=== PATIENT | male | born 1990 | race Caucasian/White ===

== ENCOUNTER 2020-12-22 11:40 | Outpatient (REF) | payer OTHER, SELFPAY ==
[2020-12-22 14:27] LABS: Alanine Aminotransferase 19 U/L (0-40); Anion Gap 13 (12-20); Aspartate Amino Transferase 21 U/L (5-37); Blood Urea Nitrogen 11 mg/dL (9-16); Calcium 9.3 mg/dL (8.4-10.2); Carbon Dioxide 28 mmol/L (22-29); Chloride 102 mmol/L (96-108); Cholesterol 153 mg/dL; Estimated Glomerular Filt Rate > 60; Glucose Fasting 78 mg/dL (60-99); HDL Cholesterol 35 mg/dL; LDL Cholesterol Calculated 100 mg/dl; Potassium 3.9 mmol/L (3.3-5.1); Sodium 139 mmol/L (135-145); Triglycerides 91 mg/dL
== END 2020-12-22 11:41 | disposition home or self-care (01) ==
LOC: HO.HMGCLDS 11:40
PROVIDERS: PCP Internal Medicine; Visit Provider Internal Medicine
DX: Z00.00 Encounter for general adult medical examination without abnormal findings (principal); I10 Essential (primary) hypertension
CPT/HCPCS: 36415; 80048; 80061; 84450; 84460

== ENCOUNTER 2021-12-24 10:32 | Outpatient (REF) | payer OTHER, SELFPAY ==
[2021-12-24 11:49] LABS: MANUAL DIFF FLAG NO
[2021-12-24 11:55] LABS: Basophils Percent Auto 0.4 % (0-2); Eosinophils Absolute Auto 0.1 X10*3/uL (0.0-0.4); Eosinophils Percent Auto 2.8 % (0-4); Hematocrit 43.1 % (42.0-52.0); Imm Gran Abs Auto 0.03 X10*3/uL (0.00-0.03); Imm Gran Pct Auto 0.6 % (0.0-0.4); Lymphocytes Absolute Auto 1.3 X10*3/uL (1.2-4.9); Lymphocytes Percent Auto 27.3 % (20-40); Mean Corpuscular HGB Conc 32.5 g/dl (31.0-36.0); Mean Corpuscular Hemoglobin 29.2 pg (27.0-33.0); Mean Platelet Volume 10.8 fL (9.4-12.4); Monocytes Absolute Auto 0.5 X10*3/uL (0.1-1.2); Monocytes Percent Auto 10.5 % (2-11); Neutrophils Absolute Auto 2.7 x10*3/uL (2.0-8.3); Neutrophils Percent Auto 58.4 % (45-73); Platelet Count 176 X10*3/uL (160-400); Red Blood Count 4.79 X10*6/uL (4.60-5.80); Red Cell Distribution Width 12.7 % (11.0-16.0); White Blood Count 4.7 X10*3/uL (4.8-10.8)
[2021-12-24 12:21] LABS: Alanine Aminotransferase 28 U/L (0-40); Albumin Level 4.5 g/dL (3.5-5.0); Alkaline Phosphatase 47 U/L (39-117); Anion Gap 13 (12-20); Aspartate Amino Transferase 29 U/L (5-37); Bilirubin Total 0.9 mg/dL (0.0-1.0); Blood Urea Nitrogen 13 mg/dL (9-16); Calcium 9.4 mg/dL (8.4-10.2); Carbon Dioxide 26 mmol/L (22-29); Chloride 104 mmol/L (96-108); Cholesterol 139 mg/dL; Estimated Glomerular Filt Rate > 60; Glucose Fasting 82 mg/dL (60-99); HDL Cholesterol 38 mg/dL; LDL Cholesterol Calculated 92 mg/dl; Magnesium 2.1 mg/dL (1.6-2.6); Potassium 4.2 mmol/L (3.3-5.1); Sodium 139 mmol/L (135-145); Total Protein 7.2 g/dL (6.5-8.0); Triglycerides 47 mg/dL
[2021-12-24 12:29] LABS: TSH reflex Free T4 1.37 uIU/mL (0.32-4.0)
[2021-12-24 12:39] LABS: Vitamin B12 364 pg/mL (200-900)
[2021-12-24 14:46] LABS: CT PCR NOT DETECTED (Not Detect.); NG PCR NOT DETECTED (Not Detect.)
[2021-12-24 15:17] LABS: Vitamin D 25-OH Total 26.5 ng/mL (>30)
[2021-12-26 08:58] LABS: HBc Num1 0.07 S/CO (0.00-0.79); HBsAGNum1 0.18 S/CO (0.00-0.99); HIV AB/AG Nonreactive (Nonreactive); HIV Num 1 0.07 S/CO (0.00-0.99); Hepatitis B Core Antibody Nonreactive (Nonreactive); Hepatitis B Surface Antigen Negative (Negative); ~HepC Num1 0.13 S/CO (0.00-0.79); ~Hepatitis C Antibody Nonreactive (Nonreactive)
[2021-12-26 09:08] LABS: HBS Num1 90.36 mIU/mL (0-7.99); ~Hepatitis B Surface Antibody REACTIVE (Nonreactive)
[2021-12-29 14:41] LABS: Testosterone, Free 78.1 pg/mL (35.0-155.0); Testosterone, Total 587 ng/dL (250-1100)
== END 2021-12-24 10:33 | disposition home or self-care (01) ==
LOC: HO.HMGCLDS 10:32
PROVIDERS: PCP Internal Medicine; Visit Provider Internal Medicine
DX: Z00.01 Encounter for general adult medical examination with abnormal findings (principal); M79.10 Myalgia, unspecified site; Z83.49 Family history of other endocrine, nutritional and metabolic diseases; Z11.3 Encounter for screening for infections with a predominantly sexual mode of transmission
CPT/HCPCS: 80053; 80061; 82306; 82550; 82607; 82746; 83735; 84402; 84403; 84443; 85025; 86704; 86706; 86803; 87340; 87389; 87491; 87591

== ENCOUNTER 2022-12-29 11:55 | Outpatient (AMB) | payer OTHER, SELFPAY ==
--- NOTE | 2022-12-29 11:58 | MHC.PC.OV ---
Vital Signs 12/29/22 11:59 Height 5 ft 8 in Weight 209 lb BMI 31.8 BP 120/72 Blood Pressure Location Lt brachial Position Sitting Pulse 73 Pulse Source Pulse Oximeter Pulse Oximetry (%) 99 Oxygen Delivery Method Room Air Intake Visit Reasons: annual PE Intake Note: Pt is here today for his PE Allergies penicillin G Allergy (Intermediate, Verified 12/29/22 12:37) hives Medication List - Last Reconciled 12/29/22 by Erica Tony MD creatine monohydrate mg PO magnesium glycinate 200 mg PO DAILY Tobacco use date assessed: 12/29/22 Dental Screening Dental Screen Date: 12/29/22 Did you have a dental visit in the last 12 months?: Yes Did you have a dental problem in the last 6 months where you did not have access to dental care?: No Was dental information given to patient?: Patient has dentist HPI annual PE HPI Details 32-year-old male, presents today for physical exam. He has been taking creatine supplements to build muscle, has been lifting weights. He sees his therapist regularly for his anxiety disorder.. He states that he contracted a very pruritic rash, which appeared mainly on his forehead while clearing some brush a week ago, and applied [id number] topical steroid which afforded slow resolution of the rash. He would like a referral to see an aerial tram operator to be tested for other other things that he might need to avoid that he is allergic to. [facility] Medical History (Updated 12/29/22 @ 13:02 by Erica Tony MD) Hx of contact dermatitis Generalized anxiety disorder Obesity (BMI 30.0-34.9) Family history of thyroid disease in father ADHD, predominantly inattentive type Surgical History (Updated 12/20/20 @ 10:52 by Erica Tony MD) No pertinent past surgical history Family History (Updated 12/29/22 @ 13:01 by Erica Tony MD) Father Substance use disorder Laryngeal cancer, Onset Age: 58 Thyroid disease Mother Diverticulitis HTN (hypertension) Housing: House Patient Tobacco Use Status: Never used Tobacco e-Cigarette/Vaping Use: Never Used service: No Current occupational status: employed Cognitive needs: No Hearing needs: No Vision needs: No Questionnaire PHQ-9 Over the last 2 weeks, how often have you been bothered by any of the following problems? 1. Little interest or pleasure in doing things: not at all 2. Feeling down, depressed, or hopeless: not at all 3. Trouble falling or staying asleep, or sleeping too much: not at all 4. Feeling tired or having little energy: not at all 5. Poor appetite or overeating: not at all 6. Feeling bad about yourself - or that you are a failure or have let yourself or your family down: not at all 7. Trouble concentrating on things, such as reading the newspaper or watching television: not at all 8. Moving or speaking so slowly that other people could have noticed. Or the opposite - being so fidgety or restless that you have been moving around a lot more than usual: not at all 9. Thoughts that you would be better off or of hurting yourself in some way: not at all Total score: 0 Depression Screening Interpretation: Negative Depression Screening Done: Yes 74302 - PHQ-9 Billing: Yes Source: Developed by Drs. Thaddeus Briceño, Myriam Juarez, Meño Elliott and colleagues, with an educational joya from [employer]. Thrive Questionnaire Date Thrive assessed: 12/29/22 I am a: Patient What is your living situation today?: I have a steady place to live Within the past 12 months, did the food you bought not last and you didn't have the money to get more?: Never true Within the past 12 months, did you worry whether your food would run out before you got money to buy more?: Never true Do you have trouble paying for medicines?: No Do you have trouble getting transportation to medical appointments?: No Do you have trouble paying your heating and electricity bill?: No Do you have trouble taking care of your child, family member or friend?: No Do you have trouble with day-to-day activities such as bathing, preparing meals, shopping, managing finances, etc.?: No Are you currently unemployed and looking for a job?: No Are you interested in more education?: No AUDIT C Alcohol Use Questionnaire (AUDIT-C) 1. How often do you have a drink containing alcohol?: Monthly or less 2. How many drinks containing alcohol do you have on a typical day when you are drinking?: 1 or 2 3. How often do you have six or more drinks on one occasion?: Never Total Score: 1 JESUS-7 AMB Questionnaire JESUS-7 Date JESUS - 7 assessed: 12/29/22 Feeling nervous, anxious, or on edge: 2 = More than half the days Not being able to stop or control worryin = More than half the days Worrying too much about different things: 1 = Several days Trouble relaxin = Several days Being so restless that it is hard to sit still: 1 = Several days Becoming easily annoyed or irritable: 0 = Not at all Feeling afraid as if something awful might happen: 0 = Not at all Total JESUS-7 score (0-4 normal; 5-9 mild; 10-14 moderate; 15-21 severe): 7 Source: Developed by Drs. Thaddeus Briceño, Myriam Juarez, Meño Elliott and colleagues, with an educational joya from [employer]. JESUS-7 Assessment Billing JESUS-7 Assessment Tool: JESUS-7 Assessment 45481 Review of Systems Const Denies body aches, Denies fever(s), Denies headache(s) and Denies weakness Eyes Denies change in vision ENT Reports Normal hearing present, Denies dizziness, Denies headache(s), Denies nasal congestion, Denies nasal discharge and Denies sore throat Card Denies chest pain, Denies irregular heart rhythm, Denies lightheadedness and Denies dyspnea Resp Denies chest congestion, Denies cough, Denies dyspnea and Denies wheezing GI Denies abdominal pain, Denies change in bowel habits and Denies heartburn Denies change in libido, Denies difficulty urinating, Denies genital lesions, Denies genital pain, Denies dysuria, Denies penile discharge, Denies urinary frequency and Denies urinary urgency Musc Reports no additional complaints Skin/Breast Details: As per HPI Neuro Reports Normal hearing present, Denies dizziness, Denies headache(s), Denies Sensory deficit (Neuro) and Denies weakness Psych Reports no additional complaints and Denies change in libido Endo Denies change in libido, Denies polydipsia and Denies polyuria Irving/Lymph Reports no additional complaints Aller/Immun Denies seasonal rhinorrhea and Denies wheezing Physical exam (Primary Care) Vital Signs: Last Vital Signs Pulse 73 12/29/22 11:59 BP 120/72 12/29/22 11:59 Pulse Ox 99 12/29/22 11:59 Oxygen Delivery Method Room Air 12/29/22 11:59 BMI result Body Mass Index 31.8 BMI Assessment/Plan discussion: High BMI High, discussed plan: weight reduction, dietary and physical activity Tobacco/Smoking Status: Tobacco use Status Tobacco use date assessed 12/29/22 12/29/22 12:00 Patient Tobacco Use Status Never used Tobacco 12/29/22 12:00 e-Cigarette/Vaping Use Never Used 12/29/22 12:00 PHQ-9: PHQ-9 Score PHQ-9: Total score 0 12/29/22 13:13 Depression Screening Interpretation: Negative Thrive Assessment: Date of Thrive Assessment Date Thrive assessed 12/29/22 12/29/22 12:03 Const Other: Alert oriented x3, no acute cardiorespiratory distress ambulatory with normal gait General: cooperative, no acute distress and alert Nutritional Appearance: obese Orientation/consciousness: patient oriented x3 HENMT Head: Yes normal to inspection, Yes normocephalic and Yes atraumatic Ears: hearing grossly normal bilaterally, external ears normal, TM's normal bilaterally and EAC's normal General nose exam: Normal external nose present Face and sinus: Yes face symmetric Mouth: oropharynx normal and moist mucous membranes Eyes General: appearance normal, both eyes and all related structures Neck Neck: Yes full ROM and Yes no lymphadenopathy Thyroid: Thyroid normal Chest Chest palpation & inspection: normal inspection of the chest Resp Effort & Inspection: normal respiratory effort and able to speak in complete sentences Auscultation: clear to auscultation bilaterally Cardio Rate: regular rate Rhythm: regular rhythm Heart sounds: S1 normal heart sound present and S2 normal heart sound present GI Inspection: Yes normal to inspection Palpation (GI): Soft to palpation Auscultation: normal bowel sounds General: Yes no CVA tenderness Male General Exam: Yes normal external exam Back/Spine/Pelvis Back: no CVA tenderness and No back tenderness Skin General skin exam: no rashes or lesions noted Neuro General: patient oriented x3, gait normal, moves all extremities, no focal motor deficits and CN's II-XI intact bilaterally Cranial nerves: Yes Normal hearing present Cognition (Neuro): normal cognition Motor exam (neuro): 5/5 motor strength present throughout Sensory Exam: No Sensory deficit (Neuro) Extrem General: Yes full ROM, Yes no pedal edema and Yes normal gait Psych Appearance: grossly normal and well kempt Mental Status: mental status grossly normal Speech and movement: Normal speech and movement present Affect: normal affect Attitude: cooperative Thought process: Normal thought process present Office Procedures Flu Questionnaire Does the patient have a severe egg allergy?: No Does the patient have severe life threatening allergies?: No Does the patient have a fever or illness today?: No Has the patient ever had Guillain-[place] Syndrome?: No Has the patient ever had any past reaction to a flu shot?: No Immunizations flu vacc [id number] 6mos up(PF) 60 mcg(15 mcgx4)/0.5 mL IM syringe Performing Provider: Erica Tony MD Performing Location: [facility] Administered by: Elena Swan CMA on 12/29/22 13:13 Dose Route Admin Location Dispensed Lot Number Expiration Date ND Power Mule Operator 0.5 mL IM Right Deltoid 0.5 mL [id number] 08/12/23 28933-410-70 [employer] VIS Given Date VIS Provided VIS Publication Date 12/29/22 Single Vaccine 20 Eligibility Eligibility Date Funding Source Not VFC Eligible 12/29/22 Private Boostrix Tdap 2.5 Lf unit-8 mcg-5 Lf/0.5 mL intramuscular syringe Performing Provider: Erica Tony MD Performing Location: [facility] Administered by: Elena Swan CMA on 12/29/22 13:14 Dose Route Admin Location Dispensed Lot Number Expiration Date NDC Power Mule Operator 0.5 mL IM Left Deltoid 0.5 mL [id number] 02/22/25 [id number] [employer] VIS Given Date VIS Provided VIS Publication Date 12/29/22 Single Vaccine 20 Eligibility Eligibility Date Funding Source Not VFC Eligible 12/29/22 Private Assessment and Plan Assessment & Plan (1) Annual visit for general adult medical examination with abnormal findings: Code(s): Z00.01 - Encounter for general adult medical examination with abnormal findings Plan: Will check appropriate labs. Recommended dental visit every 6 months and regular eye exams, at least every 2 years. Continue with doing regular exercise, but avoid taking a lot of supplements. Flu shot given today. Reminded to get his COVID booster (2) Hx of contact dermatitis: Comment: on forehead while clearing bushes Code(s): Z87.2 - Personal history of diseases of the skin and subcutaneous tissue Plan: Referral to credit specialist for further evaluation, per patient request, would like to be checked for other allergens (3) Family history of thyroid disease in father: Code(s): Z83.49 - Family history of other endocrine, nutritional and metabolic diseases Plan: Ordered a TSH with reflex free T4 (4) Obesity (BMI 30.0-34.9): Code(s): E66.9 - Obesity, unspecified Plan: Discussed need to increase activity and weight reduction. Recommended focusing on improving your health instead of dieting. : Eat Mediterranean diet, limit foods high in fat, sugar, and calories, eat slowly, pay attention to portion sizes, plan your meals ahead of time, start regular physical activity 150 minutes of moderate intensity exercise or 90 minutes/week of vigorous exercise and increase water intake. (5) Generalized anxiety disorder: Comment: sees a therapist every 2 weeks Code(s): F41.1 - Generalized anxiety disorder Plan: Continue with regular psychotherapy sessions. (6) Needs flu shot: Code(s): Z23 - Encounter for immunization Plan: Flu vaccine given today (7) Need for Tdap vaccination: Code(s): Z23 - Encounter for immunization Plan: Patient also was advised that he needed Tdap vaccination, given today Orders: Orders Alanine Aminotransferase 12/30/22 E66.9 - Obesity, unspecified, Z83.49 - Family history of other endocrine, nutritional and metabolic diseases, Z00.01 - Encounter for general adult medical examination with abnormal findings, F41.1 - Generalized anxiety disorder Aspartate Amino Transferase 12/30/22 E66.9 - Obesity, unspecified, Z83.49 - Family history of other endocrine, nutritional and metabolic diseases, Z00.01 - Encounter for general adult medical examination with abnormal findings, F41.1 - Generalized anxiety disorder TDaP Immunization 12/29/22 Z23 - Encounter for immunization TSH reflex Free T4 12/30/22 E66.9 - Obesity, unspecified, Z83.49 - Family history of other endocrine, nutritional and metabolic diseases, Z00.01 - Encounter for general adult medical examination with abnormal findings, F41.1 - Generalized anxiety disorder Vitamin B12 and Folate 11/18/23 E66.9 - Obesity, unspecified, Z83.49 - Family history of other endocrine, nutritional and metabolic diseases, Z00.01 - Encounter for general adult medical examination with abnormal findings, F41.1 - Generalized anxiety disorder Vitamin D 25-OH Total 12/30/22 E66.9 - Obesity, unspecified, Z83.49 - Family history of other endocrine, nutritional and metabolic diseases, Z00.01 - Encounter for general adult medical examination with abnormal findings, F41.1 - Generalized anxiety disorder Lipid Panel 12/30/22 E66.9 - Obesity, unspecified, Z83.49 - Family history of other endocrine, nutritional and metabolic diseases, Z00.01 - Encounter for general adult medical examination with abnormal findings, F41.1 - Generalized anxiety disorder UA CC w/rflx Micro + Cult 12/30/22 E66.9 - Obesity, unspecified, Z83.49 - Family history of other endocrine, nutritional and metabolic diseases, Z00.01 - Encounter for general adult medical examination with abnormal findings, F41.1 - Generalized anxiety disorder Basic Metabolic Panel Fasting 12/30/22 E66.9 - Obesity, unspecified, Z83.49 - Family history of other endocrine, nutritional and metabolic diseases, Z00.01 - Encounter for general adult medical examination with abnormal findings, F41.1 - Generalized anxiety disorder Influenza [id number] Immunization 12/29/22 Z23 - Encounter for immunization Referrals Allergy & Immunology Referral Z87.2 - Personal history of diseases of the skin and subcutaneous tissue Coding Level of Care Code Est Pt Prev Care 18-39y(50240) Diagnoses Annual visit for general adult medical examination with abnormal findings Z00.01 Hx of contact dermatitis Z87.2 Family history of thyroid disease in father Z83.49 Obesity (BMI 30.0-34.9) E66.9 Generalized anxiety disorder F41.1 Needs flu shot Z23 Need for Tdap vaccination Z23 Additional Codes JESUS-7 Assessment Billing - JESUS-7 Assessment Tool: JESUS-7 Assessment 39115 ([id number])
[2022-12-29 11:59] VITALS: BP 120/72; PULSE 73; O2SAT 99; BMI 31.8
== END 2022-12-29 13:14 | disposition home or self-care (01) ==
PROVIDERS: Visit Provider Internal Medicine
DX: Z23 Encounter for immunization (principal)
CPT/HCPCS: 90471; 90472; 90686; 90715; 99395

== ENCOUNTER 2022-12-30 10:19 | Outpatient (REF) | payer OTHER, SELFPAY ==
[2022-12-30 11:35] LABS: Appearance Urine Clear; Color Urine Yellow; Glucose Urine UA Negative (Negative); Leukocyte Esterase Urine Negative (Negative); Nitrite Urine Negative (Negative); Specific Gravity - Urine 1.015 (1.005-1.025); Urine Blood Negative (Negative); Urine Ketones Negative (Negative); Urine Protein Negative (Neg-Trace)
[2022-12-30 11:46] LABS: Alanine Aminotransferase 19 U/L (0-40); Anion Gap 12 (12-20); Aspartate Amino Transferase 21 U/L (5-37); Blood Urea Nitrogen 11 mg/dL (9-16); Calcium 9.5 mg/dL (8.4-10.2); Carbon Dioxide 28 mmol/L (22-29); Chloride 103 mmol/L (96-108); Cholesterol 151 mg/dL (<200); Estimated Glomerular Filt Rate > 60; Glucose Fasting 73 mg/dL (60-99); HDL Cholesterol 41 mg/dL (>40); LDL Cholesterol Calculated 97 mg/dL (<100); Sodium 139 mmol/L (135-145); Triglycerides 67 mg/dL (<150)
[2022-12-30 12:03] LABS: TSH reflex Free T4 1.41 uIU/mL (0.32-4.0); Vitamin D 25-OH Total 29.4 ng/mL (>30)
[2022-12-30 12:10] LABS: Folate 15.7 ng/mL (> or = 4.0); Vitamin B12 598 pg/mL (200-900)
== END 2022-12-30 10:20 | disposition home or self-care (01) ==
LOC: HO.HMGCLDS 10:19
PROVIDERS: PCP Internal Medicine; Visit Provider Internal Medicine
DX: Z00.01 Encounter for general adult medical examination with abnormal findings (principal); E66.9 Obesity, unspecified; F41.1 Generalized anxiety disorder; Z83.49 Family history of other endocrine, nutritional and metabolic diseases
CPT/HCPCS: 36415; 80048; 80061; 81003; 82306; 82607; 82746; 84443; 84450; 84460

== ENCOUNTER 2023-07-13 12:52 | Outpatient (AMB) | payer OTHER, SELFPAY ==
[2023-07-13 13:03] VITALS: BP 106/64; PULSE 101; TEMP 36.5; O2SAT 98; BMI 29.6
--- NOTE | 2023-07-13 13:03 | MHC.OFFWIV ---
Intake Vital Signs 07/13/23 13:03 Height 5 ft 8 in Weight 195 lb BMI 29.6 BP 106/64 Blood Pressure Location Lt brachial Position Sitting Pulse 101 H Pulse Source Pulse Oximeter Temp 97.7 F Temp Source Temporal Artery Scan Pulse Oximetry (%) 98 Intake Visit Reasons: EST/ back pain ongoing (lobby) Intake Note: pt is here today for back pain ongoing started 2019 Patient Tobacco Use Status: Never used Tobacco Allergies penicillin G Allergy (Intermediate, Verified 07/13/23 13:29) hives Do you need a note to return to daycare/school/sports/work: No HPI HPI Comments History of Present Illness Details He presents to office with back pain 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 He said during covid he was laid off and deconditioned Back pain intermittent with with yard activity sincee 2019 Has not been seen for this issue by provider yet Tried going to PT, gym, stretching, new matress etc and feels like back pain issue lingers and still comes back He wakes up tight lower to mid back to above mid tailbone He is looking for a PT referral to area closer to him He said he has also never had imaging done Denies neurological symptoms such as tingling, weakness, sharp shooting pain or pain into legs No abdominal pain No pain scalr given and pain is intermittent PFSH Medical History (Updated 07/13/23 @ 14:05 by Samantha Pan PA-C) Hx of contact dermatitis Generalized anxiety disorder Obesity (BMI 30.0-34.9) Family history of thyroid disease in father ADHD, predominantly inattentive type Surgical History (Updated 12/20/20 @ 10:52 by Erica Tony MD) No pertinent past surgical history Family History (Updated 12/29/22 @ 13:01 by Erica Tony MD) Father Substance use disorder Laryngeal cancer, Onset Age: 58 Thyroid disease Mother Diverticulitis HTN (hypertension) Social History Housing: House Patient Tobacco Use Status: Never used Tobacco e-Cigarette/Vaping Use: Never Used service: No Current occupational status: employed Cognitive needs: No Hearing needs: No Vision needs: No Review of Systems Card Denies chest pain and Denies dyspnea Resp Denies cough and Denies dyspnea GI Denies abdominal pain Musc Reports back pain, Denies numbness and Denies tingling Neuro Denies numbness, Denies tingling and Denies paresthesias Physical Exam Vital Signs: Last Vital Signs Temp 97.7 F 07/13/23 13:03 Pulse 101 H 07/13/23 13:03 BP 106/64 07/13/23 13:03 Pulse Ox 98 07/13/23 13:03 BMI result Body Mass Index 29.6 General: Non-toxic, NAD. Speaking full sentences. Skin: Warm dry throughout Respiratory: CTA bilaterally. No wheezes, rales or rhonchi Cardiac: RRR. No murmur MSK: No midline tenderness to c, t or l spine. Negative bilateral SLR. 5/5 strength flexion/extension at knees bilarerally. 5/5 dorsal and plantar flexion great toe bilaterally. Gait stable. Minimal point tenderness illicited to lumbar paravertebral region with pt palpation. None illicited with mine. Full ROM extremities. Neurology: A/O. No aphasia or facial droop. Gait without abnormality Psych: Good mood and affect Assessment & Plan Assessment & Plan (1) Back pain: Code(s): M54.9 - Dorsalgia, unspecified Qualifiers: Back pain location: low back pain Chronicity: acute Back pain laterality: bilateral Sciatica presence: without sciatica Qualified Code(s): M54.50 - Low back pain, unspecified Plan: Patient seen and evaluated. Will offer xray for pt has ongoing issue without imaging PT referral given Given advice to try dry needling at PT if appropriate Patient gave verbal understanding and had no additional questions or concerns at time of discharge All questions answered Orders: Orders PT Evaluation and Treatment Today M54.9 - Dorsalgia, unspecified XR lumbar spine 2-3V Today M54.9 - Dorsalgia, unspecified Coding Level of Care Code Est Pt Level 3 (79727) Diagnoses Acute bilateral low back pain without sciatica M54.50 Back pain location: low back pain Chronicity: acute Back pain laterality: bilateral Sciatica presence: without sciatica
== END 2023-07-13 14:08 | disposition home or self-care (01) ==
PROVIDERS: PCP Internal Medicine; Visit Provider Physician Assistant
DX: M54.50 Low back pain, unspecified (principal)
CPT/HCPCS: 99213

== ENCOUNTER 2023-07-13 13:55 | Outpatient (REF) | payer OTHER, SELFPAY ==
--- NOTE | ~2023-07-13 | XR_ITS ---
EXAMINATION: XR LUMBOSACRAL SPINE CLINICAL INFORMATION: Dorsalgia. COMPARISON: None available. TECHNIQUE: Three views of the lumbosacral spine. FINDINGS: There are 5 nonrib-bearing lumbar vertebra. The bony texture and alignment is satisfactory. Disc spaces are maintained. Pedicles intact. Sacroiliac joints unremarkable. XR/XR lumbar spine 2-3V IMPRESSION: No significant bony lumbar spine abnormality appreciated.
== END 2023-07-13 13:56 | disposition home or self-care (01) ==
LOC: HO.HMGCX 13:55
PROVIDERS: PCP Internal Medicine; Visit Provider Physician Assistant
DX: M54.9 Dorsalgia, unspecified (principal)
CPT/HCPCS: 72100

== ENCOUNTER 2024-01-23 13:32 | Outpatient (AMB) | payer BC, SELFPAY ==
[2024-01-23 13:35] VITALS: BP 104/60; PULSE 73; O2SAT 97; BMI 31.9
--- NOTE | 2024-01-23 13:35 | A.OFFPC_ITS ---
Vital Signs 01/23/24 13:35 Height 5 ft 8 in Weight 210 lb BMI 31.9 BP 104/60 Blood Pressure Location Lt brachial Position Sitting Pulse 73 Pulse Source Pulse Oximeter Pulse Oximetry (%) 97 Oxygen Delivery Method Room Air Intake Visit Reasons: PE Intake Note: Pt is here today for his PE Allergies penicillin G Allergy (Intermediate, Verified 01/23/24 14:01) hives Medication List - Last Reconciled 01/23/24 by Erica Tony MD No Known Home Meds Tobacco use date assessed: 01/23/24 Dental Screening Dental Screen Date: 01/23/24 Did you have a dental visit in the last 12 months?: Yes Did you have a dental problem in the last 6 months where you did not have access to dental care?: Yes Was dental information given to patient?: Patient has dentist [facility] Medical History (Updated 01/23/24 @ 14:29 by Erica Tony MD) Chronic low back pain Hx of attention deficit hyperactivity disorder Daytime sleepiness Fatigue Hx of contact dermatitis Generalized anxiety disorder Obesity (BMI 30.0-34.9) Surgical History No pertinent past surgical history Family History Father Substance use disorder Laryngeal cancer, Onset Age: 58 Thyroid disease Mother Diverticulitis HTN (hypertension) Social History Housing: House Patient Tobacco Use Status: Former Tobacco user e-Cigarette/Vaping Use: Never Used service: No Current occupational status: employed Cognitive needs: No Hearing needs: No Vision needs: No Questionnaire PHQ-9 Over the last 2 weeks, how often have you been bothered by any of the following problems? 1. Little interest or pleasure in doing things: not at all 2. Feeling down, depressed, or hopeless: not at all 3. Trouble falling or staying asleep, or sleeping too much: not at all 4. Feeling tired or having little energy: several days 5. Poor appetite or overeating: not at all 6. Feeling bad about yourself - or that you are a failure or have let yourself or your family down: not at all 7. Trouble concentrating on things, such as reading the newspaper or watching television: not at all 8. Moving or speaking so slowly that other people could have noticed. Or the opposite - being so fidgety or restless that you have been moving around a lot more than usual: not at all 9. Thoughts that you would be better off or of hurting yourself in some way: not at all Total score: 1 Depression Screening Interpretation: Negative Depression Screening Done: Yes 95427 - PHQ-9 Billing: Yes Source: Developed by Drs. Thaddeus Briceño, Myriam Juarez, Meño Elliott and colleagues, with an educational joya from [employer]. Thrive Questionnaire Date Thrive assessed: 01/23/24 I am a: Patient What is your living situation today?: I have a steady place to live Within the past 12 months, did the food you bought not last and you didn't have the money to get more?: Never true Within the past 12 months, did you worry whether your food would run out before you got money to buy more?: Never true Do you have trouble paying for medicines?: No Do you have trouble getting transportation to medical appointments?: No Do you have trouble paying your heating and electricity bill?: No Do you have trouble taking care of your child, family member or friend?: No Do you have trouble with day-to-day activities such as bathing, preparing meals, shopping, managing finances, etc.?: No Are you currently unemployed and looking for a job?: No Are you interested in more education?: No Please select the resources that you would like help with: None Currently or been in a relationship where the following occur: No concerns reported THRIVE Score: 0 AUDIT C Alcohol Use Questionnaire (AUDIT-C) 1. How often do you have a drink containing alcohol?: Monthly or less 2. How many drinks containing alcohol do you have on a typical day when you are drinking?: 1 or 2 3. How often do you have six or more drinks on one occasion?: Never Total Score: 1 JESUS-7 AMB Questionnaire JESUS-7 Date JESUS - 7 assessed: 01/23/24 Feeling nervous, anxious, or on edge: 0 = Not at all Not being able to stop or control worryin = Not at all Worrying too much about different things: 0 = Not at all Trouble relaxin = Not at all Being so restless that it is hard to sit still: 0 = Not at all Becoming easily annoyed or irritable: 0 = Not at all Feeling afraid as if something awful might happen: 0 = Not at all Total JESUS-7 score (0-4 normal; 5-9 mild; 10-14 moderate; 15-21 severe): 0 Source: Developed by Drs. Thaddeus Briceño, Myriam Juarez, Meño Elliott and colleagues, with an educational joya from [employer]. JESUS-7 Assessment Billing JESUS-7 Assessment Tool: JESUS-7 Assessment 39300 Physical exam (Primary Care) Vital Signs: Last Vital Signs Pulse 73 01/23/24 13:35 BP 104/60 01/23/24 13:35 Pulse Ox 97 01/23/24 13:35 Oxygen Delivery Method Room Air 01/23/24 13:35 BMI result Body Mass Index 31.9 Tobacco/Smoking Status: Tobacco use Status Tobacco use date assessed 01/23/24 01/23/24 13:36 Patient Tobacco Use Status Former Tobacco user 01/23/24 13:36 e-Cigarette/Vaping Use Never Used 01/23/24 13:36 PHQ-9: PHQ-9 Score PHQ-9: Total score 1 01/23/24 14:30 Depression Screening Interpretation: Negative Thrive Assessment: Date of Thrive Assessment Date Thrive assessed 01/23/24 01/23/24 13:36 Currently or been in a relationship where the following occur: No concerns reported Office Procedures Flu Questionnaire Does the patient have a severe egg allergy?: No Does the patient have severe life threatening allergies?: No Does the patient have a fever or illness today?: No Has the patient ever had Guillain-Rochester Syndrome?: No Has the patient ever had any past reaction to a flu shot?: No Immunizations Fluarix Triv 0798-4005 (PF) 45 mcg (15 mcg x 3)/0.5 mL IM syringe Performing Provider: Erica Tony MD Performing Location: [facility] Administered by: Elma Burr CMA on 01/23/24 14:30 Dose Route Admin Location Dispensed Lot Number Expiration Date [facility] Media Sales Executive 0.5 mL IM Left Deltoid 0.5 mL [id number] 08/11/24 22088-136-66 [employer] VIS Given Date VIS Provided VIS Publication Date 01/23/24 Single Vaccine 20 Eligibility Eligibility Date Funding Source Not [facility] Eligible 01/23/24 Private Coding Diagnoses Malaise R53.81 Fatigue R53.83 Daytime sleepiness R40.0 Obesity (BMI 30.0-34.9) E66.9 Advanced directives, counseling/discussion Z71.89 Annual visit for general adult medical examination with abnormal findings Z00.01 Additional Codes JESUS-7 Assessment Billing - JESUS-7 Assessment Tool: JESUS-7 Assessment 56726 ([id number]) PHQ-9 - 44002 - PHQ-9 Billing: Yes ([id number]) Assessment & Plan Assessment & Plan (1) Malaise: Code(s): R53.81 - Other malaise Category: Medical (2) Fatigue: Code(s): R53.83 - Other fatigue Category: Medical (3) Daytime sleepiness: Code(s): R40.0 - Somnolence Category: Medical (4) Obesity (BMI 30.0-34.9): Code(s): E66.9 - Obesity, unspecified Category: Medical (5) Advanced directives, counseling/discussion: Code(s): Z71.89 - Other specified counseling (6) Annual visit for general adult medical examination with abnormal findings: Code(s): Z00.01 - Encounter for general adult medical examination with abnormal findings Orders: Orders Vitamin D 25-OH Total Today R53.81 - Other malaise, R53.83 - Other fatigue Lipid Panel Today R53.81 - Other malaise, R53.83 - Other fatigue Comprehensive [place]. Panel Fast Today R53.81 - Other malaise, R53.83 - Other fatigue Creatine Kinase Total Today R53.81 - Other malaise, R53.83 - Other fatigue Complete Blood Count Auto Diff Today R53.81 - Other malaise, R53.83 - Other fatigue TSH reflex Free T4 Today R53.81 - Other malaise, R53.83 - Other fatigue Influenza [id number] Immunization Today Z23 - Encounter for immunization Referrals Sleep Medicine Referral R40.0 - Somnolence, R53.81 - Other malaise, R53.83 - Other fatigue
--- OUTSIDE RECORDS SUMMARY | 2024-01-24 02:29 | XMS_ITS | Data Portability ---
Author Organization [facility], [address] Address [address] [place] [address] Care Team Providers Care Felt Finisher Name Role Phone [facility] Primary Care Provider Assessment No assessment recorded. Plan of Treatment Reminders Order Date Submit Date Provider Last Modified By Organization Details Last Modified Time Details Appointments None recorded. Lab None recorded. Referral None recorded. Procedures None recorded. Surgeries None recorded. Imaging None recorded. Medication Orders Medrol (Derrick) 4 mg tablets in a dose pack 2022 023 [facility] #[id number], [address] [place], [address], 3 10:19:23 cetirizine 10 mg tablet 2022 023 [facility][id number], [address] [place], [address], 3 10:19:18 Patient TargetsNo targets recorded. Patient Instructions Encounter Date Encounter Id Patient Instructions Last Modified By Organization Details Last Modified Time 10/24/2022 [id number] Based on your ex am and presentation, you are being diagnosed with allergic dermatitis. You were prescribed Prednisone - Here is some general Information regarding this medication. 1. Make sure you take with Food 2. Do not take right before bedtime -this should be taken during the day because it may make you a little more wired. May keep you from sleeping. 3. Prednisone will increase glucose -so if you are a diabetic then you will need to monitor your glucose closely. Please d/c if glucose goes above 300. 4. Do not take this medication with Ibuprofen The following is my recommendations to help you with your condition: 1. Take Antihistamine - like Claritin, Onelia, or Benadryl 2. Hot showers will make you more itchy. 3. No creams or lotions 4. Cool Compresses 5. Try not to scratch or itch since this can lead to infection. I would call and schedule an appointment with a casing in line setter if the medications I wrote you do not help with your condition. You should be seen more urgently if you develop any of the followin. Worsening Redness 2. Purulent Discharge from the skin 3. Fever > 101.0 4. Joint Pain 5. Swelling [id number] Not available 10/24/2022 10:19:15 Reason for Referral None Reported. Problems No Known Problems Medical Equipment None Reported. Allergies Allergen ID Allergen Name Allergen Category Reaction Reaction Severity Criticality Documentation Date Start Date Code Code System Note Provider Name and Address Organization Details Recorded Time 634061 Medicinal product containin g penicilli n and acting as antibacte rial agent (product) medicatio n Not available Not available Not available 10/24/2022 99339 05 SNOMED D[facility]IUS Mane [facility] 3 10:00:37 Medications Name Sig Start Date Stop Date Status Note LastModified by Organization Details LastModified Time cetirizine 10 mg tablet Take 1 tablet every day by oral route for 10 days. 023 active Not Available Not Available Not Avai lable Medrol (Derrick) 4 mg tablets in a dose pack Take 1 dose pk by oral route. 023 active Not Available Not Available Not Avai lable Vitals Date Recorded Body height Body mass index (BMI) Body weight Respiratory rate Oxygen saturation Oxygen saturation in Arterial blood by Pulse oximetry Heart rate Body temperature Systolic blood pressure Diastolic blood pressure Provider Name and Address Organization Details Last Updated DateTime 3 172.72 cm 30.4 kg/m2 60022.4 7 g 18 /min 100 % 100 % 73 /min 98.1 [degF] 140 mm[Hg] 98 mm[Hg] FLAKITO Arzola [facility] 3 10:02:34 Social History Question Answer Notes LastModified by Organizat ion Details LastModified Time Tobacco Smoking Status Never Smoker [facility] 10/24/2022 10:01:32 What Is Your Level Of Alcohol Consumption? Occasional Information not available 10/24/2022 Which Illicit Or Recreational Drugs Have You Used? Marijuana Occasional Information not available 10/24/2022 Do You Use Any Illicit Or Recreational Drugs? Yes Information not available 10/24/2022 Do You Or Have You Ever Used Any Other Forms Of Tobacco Or Nicotine? No Information not available 10/24/2022 Sex: Unknown Functional Status None recorded. Mental Status None recorded. Family History Relationship Description Onset Age of this Age Resolved Age Notes LastModified by Organization Details LastModified Time Father Malignant neoplastic disease Not available 01/2023 10:01:00 Mother Diverticulit is Not available 01/2023 10:01:12 Medical History No medical history recorded. Immunizations Vaccine Type Date Status Note Provider Nam e and Address Organization Details Recorded Time Influenza, MDCK, quadrivalent, PF 03/12/2017 completed FLAKITO PUCKETT null, [place] - [facility] 10/24/2022 10:00:29 COVID-19 vaccine, vector-nr, rS-Ad26, PF, 0.5 mL 05/13/2020 completed FLAKITO PUCKETT null, [place] - [facility] 10/24/2022 10:00:29 Influenza, split virus, quadrivalent, PF 12/20/2020 completed FLAKITO PUCKETT null, [place] - [facility] 10/24/2022 10:00:29 Influenza, split virus, quadrivalent, PF 12/23/2021 completed FLAKITO PUCKETT null, [place] - [facility] 10/24/2022 10:00:29 Past Encounters Encounter ID Performer Location Encounter Start Date Encounter Closed Date Diagnosis/Indication Diagnosis SNOMED-CT Code Diagnosis ICD10 Code [id number] [address] [facility] [address] [place] [address] 07/07/2018 13:36:37 07/07/2018 14:23:43 [id number] DARIUS LANGSTON [address] [place] [address] 10/24/2022 09:26:45 10/24/2022 10:22:45 Localized eruption of skin 090946239 R21 Health Concerns Section Related Observation LastModified by Organization Melissa camacho LastModified Time None Recorded Concern Status LastModified by Organization Details LastModified Time None Recorded Advance Directives Directive None Recorded Payers Encounter Date Sequence Insurance Name Policy Number Policy Reeder Covered Member ID Reeder Member ID Guarantor Name 10/24/2022 1 [facility] [id number] 1 Bruce Krueger [id number] Bruce Evans Notes Date Note Type Note Provider Name and Address Organization Details Recorded Time 10/24/2022 text/html EdemaReported bypatient.Notes:32 y.o male pt presents with local swelling with mild erythematous pruritc rash that started along forehead that started today. PT was wearing a cap. He pulled it off and noticed a rash and swelling. He used some local hydrocortisone which helped. He denies pain or taking new meds DARIUS LANGSTON [facility] [place], [address], [place] - [facility] 10/25/2022 13:58:54
== END 2024-01-23 14:45 | disposition home or self-care (01) ==
PROVIDERS: PCP Internal Medicine; Visit Provider Internal Medicine
DX: Z23 Encounter for immunization (principal)

== ENCOUNTER → 2024-01-23 13:32 | Outpatient (BNVA) | payer OTHER, SELFPAY | PROVIDERS: PCP Internal Medicine; Visit Provider Internal Medicine | DX: Z00.01 Encounter for general adult medical examination with abnormal findings (principal); Z23 Encounter for immunization; R53.81 Other malaise; R53.83 Other fatigue; R40.0 Somnolence; E66.9 Obesity, unspecified; Z68.31 Body mass index [BMI] 31.0-31.9, adult; Z71.89 Other specified counseling | CPT/HCPCS: 90471; 90656; 96127 ==

== ENCOUNTER 2024-02-04 13:21 | Outpatient (REF) | payer BC, SELFPAY ==
[2024-02-04 16:12] LABS: MANUAL DIFF FLAG NO
[2024-02-04 16:21] LABS: Basophils Percent Auto 0.5 % (0-2); Eosinophils Absolute Auto 0.1 X10*3/uL (0.0-0.4); Eosinophils Percent Auto 2.2 % (0-4); Hematocrit 42.7 % (42.0-52.0); Hemoglobin 14.2 g/dl (14.0-18.0); Imm Gran Abs Auto 0.06 X10*3/uL (0.00-0.03); Imm Gran Pct Auto 1.1 % (0.0-0.4); Lymphocytes Absolute Auto 1.5 X10*3/uL (1.2-4.9); Lymphocytes Percent Auto 26.8 % (20-40); Mean Corpuscular HGB Conc 33.3 g/dl (31.0-36.0); Mean Corpuscular Hemoglobin 29.8 pg (27.0-33.0); Mean Corpuscular Volume 89.7 fL (80.0-98.0); Mean Platelet Volume 10.7 fL (9.4-12.4); Monocytes Absolute Auto 0.5 X10*3/uL (0.1-1.2); Monocytes Percent Auto 9.7 % (2-11); Neutrophils Absolute Auto 3.3 x10*3/uL (2.0-8.3); Neutrophils Percent Auto 59.7 % (45-73); Platelet Count 187 X10*3/uL (160-400); Red Blood Count 4.76 X10*6/uL (4.60-5.80); Red Cell Distribution Width 13.1 % (11.0-16.0); White Blood Count 5.6 X10*3/uL (4.8-10.8)
[2024-02-04 19:33] LABS: Albumin Level 4.6 g/dL (3.5-5.0); Anion Gap 12 (12-20); Aspartate Amino Transferase 28 U/L (5-37); Bilirubin Total 0.7 mg/dL (0.0-1.0); Blood Urea Nitrogen 12 mg/dL (9-16); Calcium 9.2 mg/dL (8.4-10.2); Carbon Dioxide 28 mmol/L (22-29); Chloride 104 mmol/L (96-108); Cholesterol 164 mg/dL (<200); Estimated Glomerular Filt Rate > 60; Glucose Fasting 84 mg/dL (60-99); HDL Cholesterol 43 mg/dL (>40); LDL Cholesterol Calculated 109 mg/dL (<100); Potassium 4.5 mmol/L (3.3-5.1); Sodium 139 mmol/L (135-145); Total Protein 7.3 g/dL (6.5-8.0); Triglycerides 64 mg/dL (<150)
[2024-02-04 20:18] LABS: Alanine Aminotransferase 34 U/L (0-40); Alkaline Phosphatase 46 U/L (39-117)
[2024-02-04 23:59] LABS: TSH reflex Free T4 2.18 uIU/mL (0.32-4.0); Vitamin D 25-OH Total 29.8 ng/mL (>30)
== END 2024-02-04 13:22 | disposition home or self-care (01) ==
LOC: HO.HMGCLDS 13:21
PROVIDERS: PCP Internal Medicine; Visit Provider Internal Medicine
DX: R53.81 Other malaise (principal); R53.83 Other fatigue
CPT/HCPCS: 36415; 80053; 80061; 82306; 82550; 84443; 85025

== ENCOUNTER 2024-03-04 11:03 | Outpatient (AMB) | payer BC, SELFPAY ==
--- NOTE | 2024-03-04 11:07 | A.OFFVIS_ITS ---
Vital Signs 03/04/24 11:11 Height 5 ft 8 in Weight 207 lb 8 oz BMI 31.5 BP 122/82 Blood Pressure Location Lt brachial Position Sitting Pulse 83 Pulse Source Pulse Oximeter Pulse Oximetry (%) 98 Oxygen Delivery Method Room Air Intake Visit Reasons: 01/23 LVM+Let INP-Fatigue/Somnolence Intake Note: Patient presents for a new patient evaluation for fatigue and somnolence. [employer] Required: No Accompanied by: Self / Same As Patient Allergies penicillin G Allergy (Intermediate, Verified 03/04/24 11:11) hives Medication List - Last Reconciled 03/04/24 by Jenn Lockhart PA-C No Known Home Meds HPI Comments Details: 33 year old male referred to us by his PCP for a sleep evaluation. He has been a poor sleeper all his life, goes to bed at 9pm and takes 2 hours to wake up. 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 He has 2 cups of coffee or a cup of energy drink daily, and he still feels exhausted with general fatigue at baseline. He has a meal right before sleeping, and will have GERD like symptoms. He does snore, denies, apneas or gasping for air. He exercises daily and had a back injury, feels like psoas muscle injured, working with PT. He has edibles occasionally, denies tobacco smoking, alcohol socially. He has seasonal depression, his mood is okay, declines antidepressants. He stays active goes to the gym, to avoid getting depressed or bored. [facility] Medical History (Updated 03/04/24 @ 11:34 by Jenn Lockhart PA-C) Chronic low back pain Hx of attention deficit hyperactivity disorder Daytime sleepiness Fatigue Hx of contact dermatitis Generalized anxiety disorder Obesity (BMI 30.0-34.9) Surgical History No pertinent past surgical history Family History Father Substance use disorder Laryngeal cancer, Onset Age: 58 Thyroid disease Mother Diverticulitis HTN (hypertension) Social History Housing: House Patient Tobacco Use Status: Former Tobacco user e-Cigarette/Vaping Use: Never Used service: No Current occupational status: employed Cognitive needs: No Hearing needs: No Vision needs: No Review of Systems Const All systems reviewed & are unremarkable except as noted in HPI and below Physical Exam Vital Signs: Last Vital Signs Pulse 83 03/04/24 11:11 BP 122/82 03/04/24 11:11 Pulse Ox 98 03/04/24 11:11 Oxygen Delivery Method Room Air 03/04/24 11:11 BMI result Body Mass Index 31.5 Const General: cooperative, comfortable and no acute distress Nutritional Appearance: average body habitus Orientation/consciousness: patient oriented x3 HEENT Face and sinus: Yes normal facial exam and Yes face symmetric Teeth and gingiva: other (mallampti score 4) Eyes Pupils: Equal, round and reactive pupils present Neck Neck: Yes full ROM and Yes supple Resp Effort & Inspection: normal respiratory effort and able to speak in complete sentences Neuro General: patient oriented x3 and moves all extremities Cranial nerves: Yes CN's II-XII intact bilaterally, Yes Facial sensation intact/muscles of mastication intact, Yes Equal, round and reactive pupils present, Yes Normal accommodation reflex present, Yes Bilaterally intact EOM present, Yes Nystagmus not present, Yes Normal facial strength present, Yes Midline tongue present, Yes Ability to bilaterally rotate head present and Yes Ability to bilaterally elevate shoulders present Cognition (Neuro): normal cognition Gait exam (Neuro): Normal gait present Motor exam (neuro): 5/5 motor strength present throughout, Pronator motor function not present, no tremor noted and Normal motor muscle tone present throughout Deep tendon reflexes (DTR's): Right triceps reflex intensity grade: 2+, Left triceps reflex intensity grade: 2+, Rt Biceps (C5, C6): 2+, Left biceps reflex intensity grade: 2+, Right brachioradialis reflex intensity grade: 2+, Left brachioradialis reflex intensity grade: 2+, Right patellar reflex intensity grade: 2+ and Left patellar reflex intensity grade: 2+ Psych Appearance: grossly normal Speech and movement: Normal speech and movement present Affect: Anxious affect present Attitude: cooperative Thought process: Normal thought process present Thought content: Normal thought content present Insight: Good insight present (Psych) Judgement: Good judgement present (Psych) Results Reviewed Results Reviewed: Labs : D is low / LDL is 109 Assessment & Plan Assessment & Plan (1) Daytime sleepiness: Code(s): R40.0 - Somnolence Category: Medical (2) Fatigue: Code(s): R53.83 - Other fatigue Category: Medical Qualifiers: Fatigue type: chronic, unspecified Qualified Code(s): R53.82 - Chronic fatigue, unspecified Plan Daytime Excessive Fatigue : Home Sleep Test for evaluation. BMI is elevated - He is managing with diet and lifestyle, he goes to the gym 3x per week. Labs: Homocysteine, MMA, IRON Sleep Hygiene: Dark cool environment, no devices in bed, red light therapy may be beneficial, set a regular bedtime routine, limit fluids 2-4 hours prior to bedtime. F/U in 3 months. Orders: Orders RT home sleep study Today R40.0 - Somnolence, R53.82 - Chronic fatigue, unspecified Homocysteine Today R40.0 - Somnolence, R53.82 - Chronic fatigue, unspecified IRON PROFILE Today R40.0 - Somnolence, R53.82 - Chronic fatigue, unspecified Methylmalonic Acid Today R40.0 - Somnolence, R53.82 - Chronic fatigue, unsp ecified Coding Level of Care Code New Pt Level 4 (11436) Diagnoses Daytime sleepiness R40.0 Chronic fatigue R53.82 Fatigue type: chronic, unspecified Sleep Questionnaire Difficulty falling asleep: Yes Difficulty staying asleep?: No Number of arousals: 1-2 Snoring: Yes Witnessed apneas: No Gasping arousals: No Nocturia: No GERD: No Vivid dreams: Yes (only with MJ smoking) Acting out dreams: No Abnormal behavior in sleep: No Abnormal movements in sleep: No Morning headaches: No Excessive daytime sleepiness: Yes Daytime naps: Yes (ocassionally) Restless legs: No Hallucinations: No Sleep paralysis: Yes (lucid dreams - conscious of his dreams- ) Drop attacks: No Sleep Study: No CPAP: No
[2024-03-04 11:11] VITALS: BP 122/82; PULSE 83; O2SAT 98; BMI 31.5
--- OUTSIDE RECORDS SUMMARY | 2024-03-04 12:41 | XMS_ITS | Data Portability ---
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 Plan of Treatment Reminders Order Date Submit Date Provider Last Modified By Organization Details Last Modified Time Details Appointments None recorded. Lab None recorded. Referral None recorded. Procedures None recorded. Surgeries None recorded. Imaging None recorded. Medication Orders Medrol (Derrick) 4 mg tablets in a dose pack 2022 023 [facility]/Pharmacy #[id number], [address] [place], [address], 3 10:19:23 cetirizine 10 mg tablet 2022 023 [facility]/Pharmacy #[id number], [address] [place], [address], 3 10:19:18 Patient TargetsNo targets recorded. Patient Instructions Encounter Date Encounter Id Patient Instructions Last Modified By Organization Details Last Modified Time 10/24/2022 [id number] Based on your ex am and presentation, [...] call and schedule an appointment with a research neuropsychologist if the medications I wrote you do not help with your condition. You should be seen more urgently if you develop any of the followin. Worsening Redness 2. Purulent Discharge from the skin 3. Fever > 101.0 4. Joint Pain 5. Swelling [email or web address] Not available 10/24/2022 10:19:15 Reason for Referral None Reported. Problems No Known Problems Medical Equipment None Reported. Allergies Allergen ID Allergen Name Allergen Category Reaction Reaction Severity Criticality Documentation Date Start Date Code Code System Note Provider Name and Address Organization Details Recorded Time 689376 Product containin g penicilli n and antibioti c (product) medicatio n Not available Not available Not available 10/24/2022 79053 05 SNOMED DARIUS Mane RA - [facility] 10:00:37 Medications Name Sig Start Date Stop [...] Avai lable Vitals Date Recorded Body height Provider Name an d Address Organization Details Last Updated DateTime 10/24/2022 172.72 cm FLAKITO PUCKETT PA - [facility] 10/24/2022 10:00:10 Date Recorded Body mass index (BMI) Body weight Provider Name and Address Organization Details Last Updated DateTime 10/24/2022 30.4 kg/m2 93282.47 g FLAKITO PUCKETT PA - [facility] 10/24/2022 10:00:12 Date Recorded Respiratory rate Provider Name a nd Address Organization Details Last Updated DateTime 10/24/2022 18 /min FLAKITO PUCKETT PA - [facility] 10/24/2022 10:00:24 Date Recorded Pain severity - 0-10 verbal numeric rating [Score] - Reported Provider Name and Address Organization Details Last Updated DateTime 10/24/2022 2 FLAKITO PUCKETT PA - [facility] 10/24/2022 10:00:26 Date Recorded Oxygen saturation Oxygen saturation in Arterial blood by Pulse oximetry Provider Name and Address Organization Details Last Updated DateTime 10/24/2022 100 % 100 % FLAKITO PUCKETT PA - [facility] 10/24/2022 10:03:21 Date Recorded Heart rate Provider Name an d Address Organization Details Last Updated DateTime 10/24/2022 73 /min FLAKITOIGOR PUCKETT PA - [facility] 10/24/2022 10:03:25 Date Recorded Body temperature Provider Name a nd Address Organization Details Last Updated DateTime 10/24/2022 98.1 [degF] FLAKITO PUCKETT PA - [facility] 10/24/2022 10:03:29 Date Recorded Systolic blood pressure Diastolic blood pressure Provider Name and Address Organization Details Last Updated DateTime 10/24/2022 140 mm[Hg] 98 mm[Hg] FLAKITO PUCKETT PA - [facility] 10/24/2022 10:02:34 Social History Question Answer Notes LastModified by Organizat ion Details LastModified Time Tobacco Smoking Status Never Smoker FLAKITO PUCKETT mikhail PA - [facility] 10/24/2022 10:01:32 What Is Your Level [...] Influenza, MDCK, quadrivalent, PF 03/12/2017 completed FLAKITO MONTENEGROGARY null, PA - [facility] 10/24/2022 10:00:29 COVID-19 vaccine, vector-nr, rS-Ad26, PF, 0.5 mL 05/13/2020 completed FLAKITO CAMI-GARY null, PA - [facility] 10/24/2022 10:00:29 Influenza, split virus, quadrivalent, PF 12/20/2020 completed HAZEL CREST CAMI-GARY null, PA - [facility] 10/24/2022 10:00:29 Influenza, split virus, quadrivalent, PF 12/23/2021 completed FLAKITOIGOR PUCKETT null, PA - [facility] 10/24/2022 10:00:29 Past Encounters Encounter ID Performer Location Encounter Start Date Encounter Closed Date Diagnosis/Indication Diagnosis SNOMED-CT Code Diagnosis ICD10 Code Diagnosis Note [id number] [address] [facility] [address] [place] [address] 07/07/2018 13:36:37 07/07/2018 14:23:43 [id number] DARIUS LANGSTON [address] [place] [address] 10/24/2022 09:26:45 10/24/2022 10:22:45 Localized eruption of skin 981962309 R21 Health Concerns Section Related Observation LastModified by Organization Detai ls LastModified Time None Recorded Concern Status LastModified by Organization Details LastModified Time None Recorded Advance Directives Directive None Recorded Payers Encounter Date Sequence Insurance Name Policy Number Policy Reeder Covered Member ID Reeder Member ID Guarantor Name 10/24/[address] [place] [address] [id number] Bruce Krueger [id number] Bruce Krueger Notes Date Note Type Note Provider Name [...] pain or taking new meds DARIUS LANGSTON [address] [place], [address], PA - [facility] 10/25/2022 13:58:54
== END 2024-03-04 11:49 | disposition home or self-care (01) ==
PROVIDERS: PCP Internal Medicine; Visit Provider Physician Assistant Medical
DX: R40.0 Somnolence (principal); R53.82 Chronic fatigue, unspecified
CPT/HCPCS: 99204

== ENCOUNTER → 2024-05-07 15:45 | Outpatient (REF) | payer BC, SELFPAY | LOC: HO.SL 15:45 | PROVIDERS: PCP Internal Medicine; Visit Provider Physician Assistant Medical | DX: R53.82 Chronic fatigue, unspecified (principal); R40.0 Somnolence; R06.83 Snoring | CPT/HCPCS: 95806 ==

== ENCOUNTER → 2024-05-07 15:52 | Outpatient (BNV) | payer BC, SELFPAY | PROVIDERS: PCP Internal Medicine; Visit Provider Psychiatry & Neurology Neurology | DX: G47.10 Hypersomnia, unspecified (principal); R06.83 Snoring | CPT/HCPCS: 95806 ==

== ENCOUNTER 2024-06-04 15:25 | Outpatient (AMB) | payer BC, SELFPAY ==
--- NOTE | 2024-06-04 15:28 | A.OFFVIS_ITS ---
Vital Signs 06/04/24 15:29 Height 5 ft 8 in Weight 209 lb BMI 31.8 Pulse 69 Pulse Source Pulse Oximeter Pulse Oximetry (%) 97 Oxygen Delivery Method Room Air Intake Visit Reasons: 3 mnts f/u Intake Note: Patient presents follow up Sleep. HST done 05/07. Allergies penicillin G Allergy (Intermediate, Verified 06/04/24 15:36) hives HPI Comments Details: 33 year old male referred to us by his PCP for a sleep evaluation. HST 05/07/2024 AHI was 0 and Oxygen desaturation to 91%. Will evaluate with PSG as he continues to have poor sleep and FH of collagen deposition genetic disorder. He has been a poor sleeper all his life, goes to bed at 9pm and takes about 2 hours to wake up. His family has told him he snores loudly, and he denies apeneas or gasping or choking for air. 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 He has 2 cups of coffee or a cup of energy drink daily, yet he still feels exhausted with general fatigue at baseline. He has a meal right before sleeping and we discussed eating dinner at 5-6 pm vs 9pm today to avoid dyspepsia, belching and metallic acid like brash taste in his mouth. His father passed due to esophageal cancer and mom diagnosed with breast cancer. He exercises daily, lifts weights 3x a week, and has chronic back pain, says it is an old psoas injury, he thinks he may have pulled a muscle and would like to go for dry needling or other alternative therapies for muscle release. He has edibles occasionally for pain, he denies tobacco smoking, alcohol socially. He has seasonal depression, his mood is okay, declines antidepressants. Denies RLS, parasomnias, morning headaches. He drinks plenty of water and still feels chronic fatigue. [facility] Medical History Chronic low back pain Hx of attention deficit hyperactivity disorder Daytime sleepiness Fatigue Hx of contact dermatitis Generalized anxiety disorder Obesity (BMI 30.0-34.9) Surgical History No pertinent past surgical history Family History Father Substance use disorder Laryngeal cancer, Onset Age: 58 Thyroid disease Mother Diverticulitis HTN (hypertension) Social History Housing: House Patient Tobacco Use Status: Former Tobacco user e-Cigarette/Vaping Use: Never Used service: No Current occupational status: employed Cognitive needs: No Hearing needs: No Vision needs: No Physical Exam Vital Signs: Last Vital Signs Pulse 69 06/04/24 15:29 Pulse Ox 97 06/04/24 15:29 Oxygen Delivery Method Room Air 06/04/24 15:29 BMI result Body Mass Index 31.8 Const General: cooperative, comfortable and no acute distress Nutritional Appearance: average body habitus Orientation/consciousness: patient oriented x3 HEENT Face and sinus: Yes normal facial exam and Yes face symmetric Teeth and gingiva: other (mallampti score 4) Eyes Pupils: Equal, round and reactive pupils present Neck Neck: Yes full ROM and Yes supple Resp Effort & Inspection: normal respiratory effort and able to speak in complete sentences Neuro General: patient oriented x3 and moves all extremities Cranial nerves: Yes CN's II-XII intact bilaterally, Yes Facial sensation intact/muscles of mastication intact, Yes Equal, round and reactive pupils present, Yes Normal accommodation reflex present, Yes Bilaterally intact EOM present, Yes Nystagmus not present, Yes Normal facial strength present, Yes Midline tongue present, Yes Ability to bilaterally rotate head present and Yes Ability to bilaterally elevate shoulders present Cognition (Neuro): normal cognition Gait exam (Neuro): Normal gait present Motor exam (neuro): 5/5 motor strength present throughout, Pronator motor function not present, no tremor noted and Normal motor muscle tone present throughout Deep tendon reflexes (DTR's): Right triceps reflex intensity grade: 2+, Left triceps reflex intensity grade: 2+, Rt Biceps (C5, C6): 2+, Left biceps reflex intensity grade: 2+, Right brachioradialis reflex intensity grade: 2+, Left brachioradialis reflex intensity grade: 2+, Right patellar reflex intensity grade: 2+ and Left patellar reflex intensity grade: 2+ Psych Appearance: grossly normal Speech and movement: Normal speech and movement present Affect: Anxious affect present Attitude: cooperative Thought process: Normal thought process present Thought content: Normal thought content present Insight: Good insight present (Psych) Judgement: Good judgement present (Psych) Results Reviewed Results Reviewed: HST 05/07/2024 AHI is 0 and Oxygen desaturation to 91%. Will evaluate with PSG. Assessment & Plan Assessment & Plan (1) Fatigue: Code(s): R53.83 - Other fatigue Category: Medical Qualifiers: Fatigue type: chronic, unspecified Qualified Code(s): R53.82 - Chronic fatigue, unspecified (2) Daytime sleepiness: Code(s): R40.0 - Somnolence Category: Medical (3) Obesity (BMI 30.0-34.9): Code(s): E66.9 - Obesity, unspecified Category: Medical (4) Chronic low back pain: Comment: right , no radiation Code(s): M54.50 - Low back pain, unspecified; G89.29 - Other chronic pain Category: Medical Qualifiers: Back pain laterality: midline Sciatica presence: unspecified whether sciatica present Qualified Code(s): M54.50 - Low back pain, unspecified; G89.29 - Other chronic pain (5) Excessive daytime sleepiness: Code(s): G47.19 - Other hypersomnia Category: Medical (6) Low vitamin D level: Code(s): R79.89 - Other specified abnormal findings of blood chemistry Category: Medical Plan Chronic fatigue PSG to evaluate for sleep difficulties Labs Ferrriting B12/ MMA/ Homocysteine ADHD not on stimulants Vitamin D is low he is taking a D daily. F/U in 3 months for PSG results and complete labs prior to visit. Orders: Orders PT Evaluation and Treatment Today E66.9 - Obesity, unspecified, G89.29 - Other chronic pain, M54.50 - Low back pain, unspecified, R53.82 - Chronic fatigue, unspecified Methylmalonic Acid Today G47.19 - Other hypersomnia, G47.9 - Sleep disorder, unspecified, R53.82 - Chronic fatigue, unspecified, R53.83 - Other fatigue Vitamin B12 and Folate Today G47.19 - Other hypersomnia, R53.82 - Chronic fatigue, unspecified Ferritin Today G47.19 - Other hypersomnia, R53.82 - Chronic fatigue, unspecified Homocysteine Today G47.19 - Other hypersomnia, G47.9 - Sleep disorder, unspecified, R53.82 - Chronic fatigue, unspecified, R53.83 - Other fatigue Medications: New magnesium oxide 400 mg PO DAILY 90 days 90 tabs 3RF sleep disturbances MDD 400mg G47.19 - Other hypersomnia cholecalciferol (vitamin D3) take one capsule once a week and will f/u in 3 months to check D levels. 1,250 mcg PO QWEEK 30 caps 3RF Low Vit D MDD 1250mcg R79.89 - Other specified abnormal findings of blood chemistry Patient Instructions: Sleep Hygiene provided: set a scheduled bedtime and wake time to help regulate the circadian rhythm and balance the release of pituitary hormones. Sleep in a dark room, temperatures below 68 degrees, and no devices n bed. Limit caffeinated products 6 hours prior to bed, and limit fluids 2-4 hours prior to bed. Gentle night yoga, diffusing essential oils, and playing soft music can be relaxing. PT for Lower back Vit D for low Vitamin D levels will check in 3 months again. Start taking (take 1250unit / 50,000) once weekly for now. PSG to further evaluate sleep difficulties and chronic fatigue. Labs Ferritin, MMA, Homocysteine, B12 Folate Coding Level of Care Code Est Pt Level 4 (33740) Diagnoses Chronic fatigue R53.82 Fatigue type: chronic, unspecified Daytime sleepiness R40.0 Obesity (BMI 30.0-34.9) E66.9 Chronic midline low back pain, unspecified whether sciatica present M54.50; G89.29 Back pain laterality: midline Sciatica presence: unspecified whether sciatica present Excessive daytime sleepiness G47.19 Low vitamin D level R79.89 Time Spent (min) 25 Comment Evaluation
[2024-06-04 15:29] VITALS: PULSE 69; O2SAT 97; BMI 31.8
--- OUTSIDE RECORDS SUMMARY | 2024-06-04 18:07 | XMS_ITS | Data Portability ---
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 Plan of Treatment Reminders Order Date Submit Date Provider Last Modified By Organization Details Last Modified Time Details Appointments None recorded. Lab None recorded. Referral None recorded. Procedures None recorded. Surgeries None recorded. Imaging None recorded. Medication Orders Medrol (Derrick) 4 mg tablets in a dose pack 2022 023 [facility]/Pharmacy #[id number], [address] [place], [address], 3 10:19:23 cetirizine 10 mg tablet 2022 023 [facility]/Pharmacy #[id number], [address] [place], [address], 3 10:19:18 Patient TargetsNo targets recorded. Patient Instructions Encounter Date Encounter Id Patient Instructions Last Modified By Organization Details Last Modified Time 10/24/2022 [id number] Based on your ex am and presentation, [...] call and schedule an appointment with a top stitcher if the medications I wrote you do not help with your condition. You should be seen more urgently if you develop any of the followin. Worsening Redness 2. Purulent Discharge from the skin 3. Fever > 101.0 4. Joint Pain 5. Swelling Not available 10/24/2022 10:19:15 Reason for Referral None Reported. Problems No Known Problems Medical Equipment None Reported. Allergies Allergen ID Allergen Name Allergen Category Reaction Reaction Severity Criticality Documentation Date Start Date Code Code System Note Provider Name and Address Organization Details Recorded Time 854302 Product containin g penicilli n (product) medicatio n Not available Not available Not available 10/24/2022 43844 8001 SNOMED DARIUS Mane RA [facility] 3 10:00:37 Medications Name Sig Start [...] mass index (BMI) Body weight Respiratory rate Pain severity - 0-10 verbal numeric rating [Score] - Reported Oxygen saturation Oxygen saturation in Arterial blood by Pulse oximetry Heart rate Body temperature Systolic blood pressure Diastolic blood pressure Provider Name and Address Organization Details Last Updated DateTime 3 172.72 cm 30.4 kg/m2 58105.4 7 g 18 /min 2 100 % 100 % 73 /min 98.1 [degF] 140 mm[Hg] 98 mm[Hg] FLAKITO Pickett [facility] 3 10:02:34 Social History Question Answer Notes LastModified by Organizat ion Details LastModified Time Tobacco Smoking Status Never Smoker FLAKITO elizondo, PA - [facility] 10/24/2022 10:01:32 What [...] split virus, quadrivalent, PF 12/23/2021 completed FLAKITO HIARSTONA null, PA - [facility] 10/24/2022 10:00:29 Past Encounters Encounter ID Performer Location Encounter Start Date Encounter Closed Date Diagnosis/Indication Diagnosis SNOMED-CT Code Diagnosis ICD10 Code Diagnosis Note [id number] [address] [address] 07/07/2018 13:36:37 07/07/2018 14:23:43 [id number] DAR[facility]US LANGSTON [address] [facility] [address] [place] [address] 10/24/2022 09:26:45 10/24/2022 10:22:45 Localized eruption of skin [id number] R21 Health Concerns Section Related Observation LastModified by Organization Melissa ls LastModified Time None Recorded Concern Status LastModified by Organization Details LastModified Time None Recorded Advance Directives Directive None Recorded Payers Encounter Date Sequence Insurance Name Policy Number Policy Reeder Covered Member ID Reeder Member ID Guarantor Name 10/24/2022 1 [facility] [id number] 1 Bruce Krueger [id number] Bruce Evans Notes Date Note Type Note [...] pain or taking new meds DARIUS LANGSTON [facility] [place], [address], PA - [facility] 10/25/2022 13:58:54
== END 2024-06-04 16:23 | disposition home or self-care (01) ==
LOC: HO.HSMS 15:26
PROVIDERS: PCP Internal Medicine; Visit Provider Physician Assistant Medical
DX: R53.82 Chronic fatigue, unspecified (principal); R40.0 Somnolence; E66.9 Obesity, unspecified; M54.50 Low back pain, unspecified; G89.29 Other chronic pain; G47.19 Other hypersomnia; R79.89 Other specified abnormal findings of blood chemistry
CPT/HCPCS: 99214

== ENCOUNTER 2024-09-08 15:34 | Outpatient (AMB) | payer BC, SELFPAY ==
--- NOTE | 2024-09-08 15:39 | A.OFFVIS_ITS ---
Vital Signs 09/08/24 15:40 Height 5 ft 8 in Weight 215 lb 6 oz BMI 32.7 BP 128/86 Blood Pressure Location Lt brachial Position Sitting Pulse 75 Pulse Source Pulse Oximeter Pulse Oximetry (%) 98 Oxygen Delivery Method Room Air Intake Visit Reasons: 3 mnts f/u Intake Note: Patient present follow up Sleep medication. Patient states about the same no chances. Low energy during the day no trouble with sleep. Accompanied by: Self / Same As Patient Allergies penicillin G Allergy (Intermediate, Verified 09/08/24 15:42) hives HPI Comments Details: 34 year old male presents for a follow up of his home sleep study results. HST 05/07/2024 AHI c/w 0 and Oxygen desaturation to 91% and 16% of sleep comprised of snoring. Will evaluate with PSG as he continues to have poor sleep and c/o chronic fatigue. Patient declines PSG today. Patient states his sleep is about the same, has been a poor sleeper all his life, is slow to wake. He has no trouble falling asleep or staying asleep. He has trouble turning off his brain as he keeps ruminating about daily events prior to sleep. He drinks one cup of coffee and one energy drink, andl feels exhausted through the day with general fatigue at baseline. He has a meal right before sleeping and we discussed eating dinner earlier and going to sleep by 10pm to avoid dyspepsia, belching and metallic acid like brash taste in his mouth. We spent significant portion of today's visit on patient education re: multitude of factors for fatigue and poor quality of sleep. He denies symptoms of RLS, parasomnias and morning headaches. He exercises daily, lifts weights 3-4x a week, and has chronic back tightness. His muscles continue to be sore and improve with hot showers and light movement. He has edibles occasionally, alcohol socially however denies smoking. He has seasonal depression disorder, and his mood is anxious, he declines any medication today. June 2023 Reviewed Lumbar spine xray XR/XR lumbar spine 2-3V IMPRESSION: No significant bony lumbar spine abnormality appreciated PFSH Medical History Chronic low back pain Hx of attention deficit hyperactivity disorder Daytime sleepiness Fatigue Hx of contact dermatitis Generalized anxiety disorder Obesity (BMI 30.0-34.9) Surgical History No pertinent past surgical history Family History Father Substance use disorder Laryngeal cancer, Onset Age: 58 Thyroid disease Mother Diverticulitis HTN (hypertension) Social History Housing: House Patient Tobacco Use Status: Former Tobacco user e-Cigarette/Vaping Use: Never Used service: No Current occupational status: employed Cognitive needs: No Hearing needs: No Vision needs: No Physical Exam Vital Signs: Last Vital Signs Pulse 75 09/08/24 15:40 BP 128/86 09/08/24 15:40 Pulse Ox 98 09/08/24 15:40 Oxygen Delivery Method Room Air 09/08/24 15:40 BMI result Body Mass Index 32.7 Const General: cooperative, comfortable and no acute distress Nutritional Appearance: average body habitus Orientation/consciousness: patient oriented x3 HEENT Face and sinus: Yes normal facial exam and Yes face symmetric Teeth and gingiva: other (mallampti score 4) Eyes Pupils: Equal, round and reactive pupils present Neck Neck: Yes full ROM and Yes supple Resp Effort & Inspection: normal respiratory effort and able to speak in complete sentences Neuro General: patient oriented x3 and moves all extremities Cranial nerves: Yes Facial sensation intact/muscles of mastication intact, Yes Equal, round and reactive pupils present, Yes Normal accommodation reflex present, Yes Bilaterally intact EOM present, Yes Nystagmus not present, Yes Normal facial strength present, Yes Midline tongue present, Yes Ability to bilaterally rotate head present and Yes Ability to bilaterally elevate shoulders present Cognition (Neuro): normal cognition Gait exam (Neuro): Normal gait present Motor exam (neuro): 5/5 motor strength present throughout, Pronator motor function not present, no tremor noted and Normal motor muscle tone present throughout Psych Appearance: grossly normal Speech and movement: Normal speech and movement present Affect: Anxious affect present Thought process: Normal thought process present Thought content: Normal thought content present Results Reviewed Results Reviewed: HST 04/2024 AHI c/w 0 and O2 Nadirs to 91%. Snoring 16% of sleep. Xray June 2023 Lumbar xray Assessment & Plan Assessment & Plan (1) Excessive daytime sleepiness: Comment: HST no evidence of CARRIE, declines PSG today. Code(s): G47.19 - Other hypersomnia Category: Medical (2) Daytime sleepiness: Code(s): R40.0 - Somnolence Category: Medical (3) Obesity (BMI 30.0-34.9): Code(s): E66.9 - Obesity, unspecified Category: Medical (4) Chronic low back pain: Comment: right , no radiation, tweaked a muscle, will try using baclofen. Code(s): M54.50 - Low back pain, unspecified; G89.29 - Other chronic pain Category: Medical Qualifiers: Back pain laterality: midline Sciatica presence: unspecified whether sciatica present Qualified Code(s): M54.50 - Low back pain, unspecified; G89.29 - Other chronic pain (5) Low vitamin D level: Comment: He is taking [facility] brand vitamin d otc. Code(s): R79.89 - Other specified abnormal findings of blood chemistry Category: Medical (6) History of difficulty sleeping: Code(s): Z72.821 - Inadequate sleep hygiene Category: Medical (7) Anxiety and depression: Comment: declines SSRI and Buproprion today. Code(s): F41.9 - Anxiety disorder, unspecified; F32.A - Depression, unspecified Category: Medical Plan HST reviewed with patient today in detail, snoring 16% of sleep. No evidence of CARRIE on HST. Significant portion of todays visit was spent on patient education re: multitude of factors for fatigue, and differentiation of HST vs PSG. Sleep hygiene reviewed with patient. Chronic fatigue PSG to evaluate for sleep difficulties (patient declines) Labs to r/o deficiencies : Ferrritin B12/ MMA/ Homocysteine ( not resulted) Vitamin D is low he is taking a vit D daily. Chronic low back pain start baclofen 5mg po daily at bedtime. Start Melatonin 5mg po daily at bedtime 3 hours prior to sleep to help initiate sleep when unable to turn off self talk. Anxiety and depression, follow up with sleep behavior therapist [email or web address] and or download podcast c[facility] life skills coach. Medications: New melatonin take one 5mg po capsule daily 3 hours prior to bed. 5 mg PO DAILY 30 caps 0RF sleep difficulties 30 days MDD 5mg Z72.821 - Inadequate sleep hygiene baclofen 5 mg PO BEDTIME 30 tabs 0RF back pain 1 month MDD 5mg G89.29 - Other chronic pain, M54.50 - Low back pain, unspecified Patient Instructions: Sleep Hygiene provided: set a scheduled bedtime and wake time to help regulate the circadian rhythm and balance the release of pituitary hormones. Sleep in a dark room, temperatures below 68 degrees, and no devices n bed. Limit caffeinated products 6 hours prior to bed, and limit fluids 2-4 hours prior to bed. Gentle night yoga, diffusing essential oils, and playing soft music can be relaxing. Coding Level of Care Code Est Pt Level 4 (71280) Diagnoses Excessive daytime sleepiness G47.19 Daytime sleepiness R40.0 Obesity (BMI 30.0-34.9) E66.9 Chronic midline low back pain, unspecified whether sciatica present M54.50; G89.29 Back pain laterality: midline Sciatica presence: unspecified whether sciatica present Low vitamin D level R79.89 History of difficulty sleeping Z72.821 Anxiety and depression F41.9; F32.A Time Spent (min) 45 Comment will f/u with decision for PSG or anxiety meds in future
[2024-09-08 15:40] VITALS: BP 128/86; PULSE 75; O2SAT 98; BMI 32.7
--- OUTSIDE RECORDS SUMMARY | 2024-09-08 15:53 | XMS_ITS | Data Portability ---
Author Organization [facility], [address] Address [address] [place] [address] Care Team Providers Care Health And Safety Specialist Name Role Phone [facility] Primary Care Provider Assessment No assessment recorded. Plan of Treatment Reminders Order Date Submit Date Provider Last Modified By Organization Details Last Modified Time Details Appointments None recorded. Lab None recorded. Referral None recorded. Procedures None recorded. Surgeries None recorded. Imaging None recorded. Medication Orders Medrol (Derrick) 4 mg tablets in a dose pack 2022 023 [facility][id number], [address] [place], [address], 3 10:19:23 cetirizine 10 mg tablet 2022 023 [id number], [address] [place], [address], 3 10:19:18 Patient TargetsNo targets recorded. Patient Instructions Encounter Date Encounter Id Patient Instructions Last Modified By Organization Details Last Modified Time 10/24/2022 [id number] Based on your ex am and presentation, [...] call and schedule an appointment with a fountain pen turner if the medications I wrote you do not help with your condition. You should be seen more urgently if you develop any of the followin. Worsening Redness 2. Purulent Discharge from the skin 3. Fever > 101.0 4. Joint Pain 5. Swelling [id number] Not available 10/24/2022 10:19:15 Reason for Referral None Reported. Problems No Known Problems Medical Equipment None Reported. Allergies Allergen ID Allergen Name Allergen Category Reaction Reaction Severity Criticality Documentation Date Start Date Code Code System Note Provider Name and Address Organization Details Recorded Time 274933 Product containin g penicilli n (product) medicatio n Not available Not available Not available 10/24/2022 [id number] SNOMED DARIUS Mane RA [facility] 3 10:00:37 Medications Name Sig Start [...] Pulse oximetry Heart rate Body temperature Systolic And Diastolic Provider Name and Address Organization Details Last Updated DateTime 3 172.72 cm 30.4 kg/m2 22325.4 7 g 18 /min 2 100 % 100 % 73 /min 98.1 [degF] 140/98 mm[Hg] FLAKITO Pickett [facility] 3 10:02:34 Social History Question Answer Notes LastModified by Organizat ion Details LastModified Time Tobacco Smoking Status Never Smoker FLAKITO PUCKETT null, [place] - [facility] 10/24/2022 10:01:32 Which Illicit Or Recreational Drugs Have You Used? Marijuana Occasional Information not available 10/24/2022 Sex: Unknown Functional Status Question Answer Note LastModified by Organizat ion Details LastModified Time Do you use any illicit or recreational drugs? Yes Information not available 10/24/2022 Do you or have you ever used any other forms of tobacco or nicotine? No Information not available 10/24/2022 What is your level of alcohol consumption? Occasional Information not available 10/24/2022 Mental Status None recorded. Family History Relationship [...] Influenza, MDCK, quadrivalent, PF 03/12/2017 completed FLAKITO ALMANZA-GARY null, [place] - [facility] 10/24/2022 10:00:29 COVID-19 vaccine, vector-nr, rS-Ad26, PF, 0.5 mL 05/13/2020 completed FLAKITO ALMANAZ-GARY null, [place] - [facility] 10/24/2022 10:00:29 Influenza, split virus, quadrivalent, PF 12/20/2020 completed FLAKITO HAIRSTONA null, [place] - [facility] 10/24/2022 10:00:29 Influenza, split virus, quadrivalent, PF 12/23/2021 completed FLAKITOIGOR ALMANZA-GARY null, [place] - [facility] 10/24/2022 10:00:29 Past Encounters Encounter ID Performer Location Encounter Start Date Encounter Closed Date Diagnosis/Indication Diagnosis SNOMED-CT Code Diagnosis ICD10 Code Diagnosis Note [id number] [address] [facility] [address] [place] [address] 07/07/2018 13:36:37 07/07/2018 14:23:43 [id number] DARIUS LANGSTON [address] [place] [address] 10/24/2022 09:26:45 10/24/2022 10:22:45 Localized eruption of skin 140237186 R21 Health Concerns Section Related Observation LastModified by Organization Detai ls LastModified Time None Recorded Concern Status LastModified by Organization Details LastModified Time None Recorded Advance Directives Directive None Recorded Payers Insurance Date Sequence Insurance Name Policy Number Policy Reeder Covered Member ID Reeder Member ID Guarantor Name 10/24/2022 1 [facility] [id number] Bruce Krueger [id number] Bruce Krueger
== END 2024-09-09 15:20 | disposition home or self-care (01) ==
LOC: HO.HSMS 15:35
PROVIDERS: PCP Internal Medicine; Visit Provider Physician Assistant Medical
DX: G47.19 Other hypersomnia (principal); R40.0 Somnolence; E66.9 Obesity, unspecified; M54.50 Low back pain, unspecified; G89.29 Other chronic pain; R79.89 Other specified abnormal findings of blood chemistry; Z72.821 Inadequate sleep hygiene; F41.9 Anxiety disorder, unspecified; F32.A Depression, unspecified
CPT/HCPCS: 99214

== ENCOUNTER 2025-01-29 15:55 | Outpatient (AMB) | payer BC, SELFPAY ==
--- NOTE | 2025-01-29 16:35 | MHC.PC.OV ---
Vital Signs 01/29/25 16:36 Height 5 ft 8 in Weight 208 lb BMI 31.6 BP 120/72 Blood Pressure Location Rt brachial Position Sitting Respiration 16 Pulse 95 Pulse Source Pulse Oximeter Temp 99.1 F Temp Source Oral Pulse Oximetry (%) 98 Oxygen Delivery Method Room Air Intake Visit Reasons: PE Lead Technologist In Cytogenetics Required: No Allergies penicillin G Allergy (Intermediate, Verified 01/29/25 16:56) hives Medication List - Last Reconciled 01/29/25 by Erica Tony MD No Known Home Meds Tobacco use date assessed: 01/29/25 Dental Screening Dental Screen Date: 01/29/25 Did you have a dental visit in the last 12 months?: Yes Did you have a dental problem in the last 6 months where you did not have access to dental care?: No Was dental information given to patient?: Patient has dentist HPI PE HPI Details The patient is a 34 year old male presenting for a physical examination. The patient has a five-year history of back pain, which he notices after gym sessions. He has previously attended physical therapy and is now self-managing the condition. The pain is not debilitating. Regarding sleep, the patient reports tiredness but notes his sleep quality is more influenced by his schedule and technology use. He underwent a home sleep apnea study which was normal, though he was confused by prescriptions for melatonin and magnesium ordered by a nurse practitioner which were never discussed with him. He denies any issues with leg movements during sleep and is not currently concerned about his sleep quality. The patient was diagnosed with ADHD in 8th grade but was unconvinced by a later evaluation at a pediatric-focused clinic. He believes he has some traits of ADHD but feels that modern environmental distractions play a large role, noting he is able to focus on assigned tasks. Past lab work was notable for a low vitamin D level. His cholesterol recently increased slightly from 99 to 109. All other recent labs, including B12, folic acid, and thyroid function, were normal, and he is not anemic. He usually takes vitamin D and magnesium supplements but has run out of them recently. [facility] Medical History (Updated 02/08/25 @ 21:28 by Erica Tony MD) Chronic low back pain Hx of attention deficit hyperactivity disorder Daytime sleepiness Fatigue Hx of contact dermatitis Generalized anxiety disorder Obesity (BMI 30.0-34.9) Surgical History No pertinent past surgical history Family History Father Substance use disorder Laryngeal cancer, Onset Age: 58 Thyroid disease Mother Diverticulitis HTN (hypertension) Social History Housing: House Patient Tobacco Use Status: Former Tobacco user e-Cigarette/Vaping Use: Never Used service: No Current occupational status: employed Cognitive needs: No Hearing needs: No Vision needs: No Questionnaire PHQ-9 Over the last 2 weeks, how often have you been bothered by any of the following problems? 1. Little interest or pleasure in doing things: not at all 2. Feeling down, depressed, or hopeless: not at all 3. Trouble falling or staying asleep, or sleeping too much: not at all 4. Feeling tired or having little energy: not at all 5. Poor appetite or overeating: not at all 6. Feeling bad about yourself - or that you are a failure or have let yourself or your family down: not at all 7. Trouble concentrating on things, such as reading the newspaper or watching television: not at all 8. Moving or speaking so slowly that other people could have noticed. Or the opposite - being so fidgety or restless that you have been moving around a lot more than usual: not at all 9. Thoughts that you would be better off or of hurting yourself in some way: not at all Total score: 0 Depression Screening Interpretation: Negative Depression Screening Done: Yes 78068 - PHQ-9 Billing: Yes Source: Developed by Drs. Thaddeus Briceño, Myriam Juarez, Meño Elliott and colleagues, with an educational joya from [employer]. Thrive Questionnaire Date Thrive assessed: 01/22/25 I am a: Patient What is your living situation today?: I have a steady place to live Within the past 12 months, did the food you bought not last and you didn't have the money to get more?: Never true Within the past 12 months, did you worry whether your food would run out before you got money to buy more?: Never true Do you have trouble paying for medicines?: No Do you have trouble getting transportation to medical appointments?: No Do you have trouble paying your heating and electricity bill?: No Do you have trouble taking care of your child, family member or friend?: No Do you have trouble with day-to-day activities such as bathing, preparing meals, shopping, managing finances, etc.?: No Are you currently unemployed and looking for a job?: No Are you interested in more education?: No Please select the resources that you would like help with: None Currently or been in a relationship where the following occur: No concerns reported THRIVE Score: 0 AUDIT C Alcohol Use Questionnaire (AUDIT-C) 1. How often do you have a drink containing alcohol?: Monthly or less 2. How many drinks containing alcohol do you have on a typical day when you are drinking?: 1 or 2 3. How often do you have six or more drinks on one occasion?: Never Total Score: 1 Score Reviewed/Action Taken: Yes JESUS-7 AMB Questionnaire JESUS-7 Date JESUS - 7 assessed: 01/29/25 Feeling nervous, anxious, or on edge: 0 = Not at all Not being able to stop or control worryin = Not at all Worrying too much about different things: 0 = Not at all Trouble relaxin = Not at all Being so restless that it is hard to sit still: 0 = Not at all Becoming easily annoyed or irritable: 0 = Not at all Feeling afraid as if something awful might happen: 0 = Not at all Total JESUS-7 score (0-4 normal; 5-9 mild; 10-14 moderate; 15-21 severe): 0 Source: Developed by Drs. Thaddeus Briceño, Myriam Juarez, Meño Elliott and colleagues, with an educational joya from [employer]. JESUS-7 Assessment Billing JESUS-7 Assessment Tool: JESUS-7 Assessment 04020 Review of Systems Const Denies fever(s), Denies headache(s) and Denies weakness Eyes Denies change in vision ENT Reports Normal hearing present, Denies dizziness, Denies headache(s), Denies nasal congestion, Denies nasal discharge and Denies sore throat Card Denies chest pain, Denies irregular heart rhythm, Denies lightheadedness and Denies dyspnea Resp Denies chest congestion, Denies cough, Denies dyspnea and Denies wheezing GI Denies abdominal pain, Denies change in bowel habits and Denies heartburn Denies change in libido and Denies difficulty urinating Musc Reports as per HPI Skin/Breast Denies lesions and Denies rash Neuro Reports Normal hearing present, Denies dizziness, Denies headache(s), Denies Sensory deficit (Neuro) and Denies weakness Psych Reports no additional complaints and Denies change in libido Endo Denies change in libido, Denies polydipsia and Denies polyuria Irving/Lymph Reports no additional complaints Aller/Immun Denies seasonal rhinorrhea and Denies wheezing Physical exam (Primary Care) Vital Signs: Last Vital Signs Temp 99.1 F 01/29/25 16:36 Pulse 95 01/29/25 16:36 Resp 16 01/29/25 16:36 BP 120/72 01/29/25 16:36 Pulse Ox 98 01/29/25 16:36 Oxygen Delivery Method Room Air 01/29/25 16:36 BMI result Body Mass Index 31.6 BMI Assessment/Plan discussion: High BMI High, discussed plan: weight reduction, dietary and physical activity Tobacco/Smoking Status: Tobacco use Status Tobacco use date assessed 01/29/25 01/29/25 16:41 Patient Tobacco Use Status Former Tobacco user 01/29/25 16:41 e-Cigarette/Vaping Use Never Used 01/29/25 16:41 PHQ-9: PHQ-9 Score PHQ-9: Total score 0 01/29/25 16:41 Depression Screening Interpretation: Negative Thrive Assessment: Date of Thrive Assessment Date Thrive assessed 01/22/25 01/29/25 16:41 Currently or been in a relationship where the following occur: No concerns reported Const Other: Alert oriented x3, no acute cardiorespiratory distress ambulatory with normal gait HENMT Head: Yes normocephalic Ears: hearing grossly normal bilaterally, external ears normal, TM's normal bilaterally and EAC's normal General nose exam: Normal external nose present Face and sinus: Yes face symmetric Mouth: moist mucous membranes Eyes General: appearance normal, both eyes and all related structures Neck Neck: Yes full ROM and Yes no lymphadenopathy Thyroid: Thyroid normal Chest Chest palpation & inspection: normal inspection of the chest Resp Effort & Inspection: normal respiratory effort and able to speak in complete sentences Auscultation: clear to auscultation bilaterally Cardio Rate: regular rate Rhythm: regular rhythm Heart sounds: S1 normal heart sound present and S2 normal heart sound present GI Inspection: Yes normal to inspection Palpation (GI): Soft to palpation Auscultation: normal bowel sounds General: Yes no CVA tenderness Male General Exam: Yes normal external exam Back/Spine/Pelvis Back: no CVA tenderness and No back tenderness Skin General skin exam: no rashes or lesions noted Neuro General: gait normal, moves all extremities, no focal motor deficits and CN's II-XI intact bilaterally Cranial nerves: Yes Normal hearing present Cognition (Neuro): normal cognition Motor exam (neuro): 5/5 motor strength present throughout Sensory Exam: No Sensory deficit (Neuro) Extrem General: Yes full ROM, Yes no pedal edema and Yes normal gait Psych Appearance: grossly normal and well kempt Mental Status: mental status grossly normal Speech and movement: Normal speech and movement present Affect: normal affect Coding Level of Care Code Est Pt Prev Care 18-39y(08263) Diagnoses Annual visit for general adult medical examination with abnormal findings Z00. Low vitamin D level R79.89 Chronic midline low back pain, unspecified whether sciatica present M54.50; G89.29 Back pain laterality: midline Sciatica presence: unspecified whether sciatica present Additional Codes JESUS-7 Assessment Billing - JESUS-7 Assessment Tool: JESUS-7 Assessment 82179 ([id number]) PHQ-9 - 31925 - PHQ-9 Billing: Yes ([id number]) Assessment & Plan Assessment & Plan (1) Annual visit for general adult medical examination with abnormal findings: Code(s): Z00.01 - Encounter for general adult medical examination with abnormal findings Plan: Will check appropriate labs. Recommended dental visit every 6 months and regular eye exams, at least every 2 years. Take adequate calcium in diet and vitamin-D 3 at 2000 IU per cap once a day, in addition to weight-bearing exercises to help maintain good muscle tone and weight control. Instructed to do self-testicular exam check for any mass. Up-to-date with his Tdap, declines getting any further COVID vaccine booster, reminded to get his yearly flu vaccine. Declined offer to get flu vaccine today (2) Low vitamin D level: Comment: He is taking [facility] brand vitamin d otc. Code(s): R79.89 - Other specified abnormal findings of blood chemistry Category: Medical Plan: Will check vitamin-D level. (3) Chronic low back pain: Comment: right , no radiation, tweaked a muscle, will try using baclofen. Code(s): M54.50 - Low back pain, unspecified; G89.29 - Other chronic pain Category: Medical Qualifiers: Back pain laterality: midline Sciatica presence: unspecified whether sciatica present Qualified Code(s): M54.50 - Low back pain, unspecified; G89.29 - Other chronic pain Plan: The patient reports a 5-year history of back pain exacerbated by gym activities, which is currently non-debilitating. He has seen a physical therapist in the past and will continue to self-manage with activity modification. Cautioned against chiropractic neck manipulation Orders: Orders Lipid Panel 01/29/25 Z00.01 - Encounter for general adult medical examination with abnormal findings, R79.89 - Other specified abnormal findings of blood chemistry Glucose Fasting 01/29/25 Z00.01 - Encounter for general adult medical examination with abnormal findings, R79.89 - Other specified abnormal findings of blood chemistry Testosterone, Free/Total 01/29/25 Z00.01 - Encounter for general adult medical examination with abnormal findings, R79.89 - Other specified abnormal findings of blood chemistry Vitamin D 25-OH Total 01/29/25 Z00.01 - Encounter for general adult medical examination with abnormal findings, R79.89 - Other specified abnormal findings of blood chemistry Varicella IgG Antibody 01/29/25 Z00.01 - Encounter for general adult medical examination with abnormal findings, R79.89 - Other specified abnormal findings of blood chemistry
[2025-01-29 16:36] VITALS: BP 120/72; PULSE 95; RESP 16; TEMP 37.3; O2SAT 98; BMI 31.6
--- OUTSIDE RECORDS SUMMARY | 2025-01-29 19:34 | XMS_ITS | Data Portability ---
Author Organization [facility], [address] Address [address] [place] [address] Care Team Providers Care Tack Cutter Name Role Phone [facility] Primary Care Provider Assessment No assessment recorded. Plan of Treatment Reminders Order Date Submit Date Provider Last Modified By Organization Details Last Modified Time Details Appointments None recorded. Lab None recorded. Referral None recorded. Procedures None recorded. Surgeries None recorded. Imaging None recorded. Medication Orders Medrol (Derrick) 4 mg tablets in a dose pack 2022 023 [id number], [address] [place], [address], 3 10:19:23 cetirizine 10 mg tablet 2022 023 [id number], [address] [place], [address], 3 10:19:18 Patient TargetsNo targets recorded. Patient Instructions Encounter Date Encounter Id Patient Instructions Last Modified By Organization Details Last Modified Time 10/24/2022 [id number] Based on your ex am and presentation, [...] call and schedule an appointment with a adhesive sprayer if the medications I wrote you do not help with your condition. You should be seen more urgently if you develop any of the followin. Worsening Redness 2. Purulent Discharge from the skin 3. Fever > 101.0 4. Joint Pain 5. Swelling [id number] Not available 10/24/2022 10:19:15 Reason for Referral None Reported. Problems No Known Problems Medical Equipment None Reported. Allergies Allergen ID Allergen Name Allergen Category Reaction Reaction Severity Criticality Documentation Date Start Date Code Code System Note Provider Name and Address Organization Details Recorded Time 691068 Product containin g penicilli n (product) medicatio n Not available Not available Not available 10/24/2022 [id number] SNOMED DARIUS Mane [facility] 3 10:00:37 [...] numeric rating [Score] - Reported Oxygen saturation Heart rate Body temperature Systolic And Diastolic Provider Name and Address Organization Details Last Updated DateTime 3 172.72 cm 30.4 kg/m2 10251.4 7 g 18 /min 2 100 % 73 /min 98.1 [degF] 140/98 mm[Hg] FLAKITO [facility] 3 10:02:34 Social History Question Answer Notes LastModified by Organizat ion Details LastModified Time Tobacco Smoking Status Never Smoker [facility]US Marrufo [facility] 10/24/2022 10:01:32 Which Illicit Or Recreational [...] Time Influenza, MDCK, quadrivalent, PF 03/12/2017 completed FLAKITOIGOR ALMANZA-GARY null, [place] - [facility] 10/24/2022 10:00:29 COVID-19 vaccine, vector-nr, rS-Ad26, PF, 0.5 mL 05/13/2020 completed FLAKITOIGOR ALMANZA-GARY null, [place] - [facility] 10/24/2022 10:00:29 Influenza, split virus, quadrivalent, PF 12/20/2020 completed FLAKITO ALMANZA-GARY null, [place] - [facility] 10/24/2022 10:00:29 Influenza, split virus, quadrivalent, PF 12/23/2021 completed FLAKITOIGOR ALMANZA-GARY null, [place] - [facility] 10/24/2022 10:00:29 Past Encounters Encounter ID Performer Location Encounter Start Date Encounter Closed Date Diagnosis/Indication Diagnosis SNOMED-CT Code Diagnosis ICD10 Code Diagnosis IMO Codes Diagnosis Note [id number] [address] [facility] [address] [place] [address] 07/07/2018 13:36:37 07/07/2018 14:23:43 [id number] DARIUS LANGSTON [address] [facility] [place] [address] 10/24/2022 09:26:45 10/24/2022 10:22:45 Localized eruption of skin [id number] R21 Health Concerns Section Related Observation LastModified by Organization Detai ls LastModified Time None Recorded Concern Status LastModified by Organization Details LastModified Time None Recorded Advance Directives Directive None Recorded Payers Insurance Date Sequence Insurance Name Policy Number Policy Reeder Covered Member ID Reeder Member ID Guarantor Name 10/24/2022 1 [facility] [id number] Bruce Krueger [id number] Bruce Krueger Notes Date Note Type Note Provider Name and Address Organization Details Recorded Time 10/24/2022 text/html EdemaReported by [email or web address] y.o male pt presents with local swelling with mild erythematous pruritc rash that started along forehead that started today. PT was wearing a cap. He pulled it off and noticed a rash and swelling. He used some local hydrocortisone which helped. He denies pain or taking new meds DARIUS LANGSTON [address] [place], [address], [place] - [facility] 10/25/2022 13:58:54
== END 2025-01-29 17:21 | disposition home or self-care (01) ==
LOC: HO.HMCC 15:55
PROVIDERS: PCP Internal Medicine; Visit Provider Internal Medicine
DX: Z00.01 Encounter for general adult medical examination with abnormal findings (principal); R79.89 Other specified abnormal findings of blood chemistry; M54.50 Low back pain, unspecified; G89.29 Other chronic pain

== ENCOUNTER → 2025-01-29 15:55 | Outpatient (BNVA) | payer BC, SELFPAY | PROVIDERS: PCP Internal Medicine; Visit Provider Internal Medicine | DX: Z00.01 Encounter for general adult medical examination with abnormal findings (principal); R53.83 Other fatigue; F90.9 Attention-deficit hyperactivity disorder, unspecified type; E55.9 Vitamin D deficiency, unspecified; M54.50 Low back pain, unspecified; G89.29 Other chronic pain | CPT/HCPCS: 96127 ==